=== PATIENT | male | born 1930 | race Caucasian/White ===

== ENCOUNTER 2021-12-03 23:41 | Inpatient (IN) ==
[2021-12-04] MEDS ORDERED: HYDROmorphone 1 MG/ML SYRINGE IV ONE (00:12)
[2021-12-04] MEDS ORDERED: ONDANSETRON 4 MG/2 ML VIAL IV PRN ×2 (01:07→08:58)
[2021-12-04] MEDS ORDERED: NALOXONE HCL 0.4 MG/ML VIAL IV PRN ×2 (01:07→18:03)
[2021-12-04] MEDS ORDERED: LACTATED RINGERS 1,000 ML IV ONE (01:23)
[2021-12-04 01:25] LABS: Basophils # (Auto) 0.02 K/mcL (0.00-0.30); Basophils % (Auto) 0.2 % (0.0-2.0); Eosinophils # (Auto) 0.02 K/mcL (0.00-0.70); Eosinophils % (Auto) 0.2 % (0.0-7.0); Hematocrit 28.3 % (40.1-51.0); Lymphocytes # (Auto) 0.55 K/mcL (1.50-4.80); Lymphocytes % (Auto) 4.4 % (15.5-49.0); Mean Cell Volume 99.3 fL (80.0-100.0); Mean Corpuscular HGB Conc 31.8 g/dL (31.0-36.0); Mean Platelet Volume 9.7 fL (8.8-12.5); Neutrophils % (Auto) 90.7 % (38.0-78.0); Platelet Count 158 K/mcL (140-440); RBC 2.85 M/mcL (4.63-6.08); Red Cell Distribution Width 13.9 % (11.5-14.5); WBC 12.5 K/mcL (4.5-11.0)
[2021-12-04] MEDS: LACTATED RINGERS 1,000 ML IV SCH ×2 (01:25→13:32)
[2021-12-04] MEDS ORDERED: LIDOCAINE VISCOUS 2% 15 ML UNIT DOSE CUP PO ONE (01:25)
[2021-12-04 01:41] LABS: Blood Urea Nitrogen 20 mg/dL (8-23); Calcium 9.1 mg/dL (8.6-10.4); Carbon Dioxide 24 mmol/L (22-30); Chloride 101 mmol/L (96-108); Glomerular Filtration Rate 75; Glucose 152 mg/dL (70-105)
--- NOTE | 2021-12-04 01:46 | Emergency Department Note ---
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 Morel presents the ED after a mechanical trip and fall once he was discharged home with acute left knee pain. He says his surgery earlier went perfectly fine he was eventually discharged home however his leg was still quite numb from his nerve block and when he was at home and attempted to stand up out of the chair he could not feel his footing and he stumbled and fell forward onto his left knee. He has obvious pain and swelling but denies distal numbness tingling although he has a bit of neuropathy at baseline. Really no other significant comorbidities he states. No head injury no blood thinners. No other injuries or trauma. Simply isolated left knee injury/pain with swelling and bruising. He does have a history of arthroplasty in that left knee that was done a very long time ago he says. Related Data Home Medications Medication Instructions Recorded Confirmed Sanguenol Nitric Oxide 1 cap PO BID SUPPLEMENT 11/14/21 12/03/21 acetaminophen 650 mg 650 mg PO Q12H PRN Pain 11/14/21 12/03/21 tablet,extended release ascorbic acid (vitamin C) 1,000 mg 1 g PO DAILY 11/14/21 12/03/21 tablet jgvqcvn-zzsrhzroa-znae tablet 1 tab PO DAILY 11/14/21 12/03/21 cetirizine 10 mg tablet (Aller-Dee) 10 mg PO QDAY 11/14/21 12/03/21 cholecalciferol (vitamin D3) 50 50 mcg PO QDAY 11/14/21 12/03/21 mcg (2,000 unit) capsule (Vitamin D3) coQ10 (ubiquinol) 1 cap PO DAILY 11/14/21 12/03/21 ferrous sulfate 325 mg (65 mg 325 mg PO QDAY 11/14/21 12/03/21 iron) tablet finasteride 5 mg tablet 5 mg PO QDAY 11/14/21 12/03/21 gabapentin 300 mg tablet 300 mg PO TID 11/14/21 12/03/21 guaifenesin 1,200 mg tablet, 1,200 mg PO DAILY 11/14/21 12/03/21 extended release 12 hr (Mucinex) ibuprofen 200 mg capsule (Advil 200 mg PO Q6H PRN Pain 11/14/21 12/03/21 Liqui-Gel) omega-3 fatty acids-vitamin E 1 cap PO DAILY 11/14/21 12/03/21 1,000 mg capsule tamsulosin 0.4 mg capsule 0.4 mg PO QDAY 11/14/21 12/03/21 vitamins-lipotropics tablet 1 tab PO BID 11/14/21 12/03/21 zinc 50 mg tablet 50 mg PO DAILY 11/14/21 12/03/21 amoxicillin 875 mg-potassium 1 tab PO BID 11/28/21 12/03/21 clavulanate 125 mg tablet Allergies Allergy/AdvReac Type Severity Reaction Status Date / Time tetracycline Allergy Rash Verified 12/03/21 23:48 Review of Systems ROS ROS Narrative: Narrative: All systems ED: reviewed and negative except as stated. [facility] Narrative Patient History Narrative: Narrative: Medical/Surgical/Family History All Active Problems (Updated 12/04/21 @ 01:46 by Oracio Trinidad DO) Closed fracture of distal end of left femur (Acute) Social History Smoking Status: Never smoker Exam Narrative Narrative: Narrative: Constitutional: normally developed, in pain Head: Normocephalic, atraumatic, Eyes: No Icterus, ENT: Moist mucus membranes, Neck: Supple, no midline tenderness Cardiac: Normal heart sounds, palpable dorsalis pedis pulses, 1+ lower extremity edema Pulmonary: Normal respiratory effort. Breath sounds clear, no wheeze, rhonchi, rales, Gastrointestinal: Abdomen soft, non-distended, non-tender, Musculoskeletal: Right lower extremity, upper extremities unremarkable atraumatic. Left lower extremity surgical postop dressing in place over his left thigh and left ankle. Taken down left thigh just has a small spot where his skin graft was taken. His left knee is obviously swollen and slightly deformed tender throughout. It is bruised. No tenderness up at his hip or proximal femur or lower leg. Left ankle and is postop dressing but distally has brisk cap refill sensation intact and palpable pulse. Able to wiggle toes. Skin: warm, dry Neuro: Alert and oriented. General Limitations: no limitations Course Vital Signs Vital signs: Vital Signs Temperature 36.6 C 12/03/21 23:42 Pulse Rate 77 12/03/21 23:42 Respiratory Rate 16 12/03/21 23:42 Blood Pressure 151/78 12/03/21 23:42 Pulse Oximetry (%) 96 12/03/21 23:42 Oxygen Delivery Method 12/03/21 23:42 Temperature 36.6 C 12/03/21 23:42 Pulse Rate 67 12/04/21 01:38 Respiratory Rate 16 12/03/21 23:42 Blood Pressure 93/61 12/04/21 01:30 Pulse Oximetry (%) 90 12/04/21 01:38 Oxygen Delivery Method 12/03/21 23:42 MDM MDM Narrative Medical decision making narrative: Narrative: Patient tripped and fell while trying to stand up out of his chair and fell onto his left knee. He is neurovascularly intact but on x-ray per my preliminary interpretation is a comminuted distal left femur fracture. We did place him in a knee immobilizer and given ice pack and analgesic. Spoke with Dr. Suarez who is agreeable to consultation and managing his orthopedic injury, request hospitalist admission. Dr. Kinney agrees to admit the patient Electrolytes no marked abnormalities, CBC with mild leukocytosis likely reactive, Twelve-lead EKG ordered for preop purposes sinus rhythm 67 first-degree AV block QRS QTC within normal no STEMI criteria Chest x-ray obtained for preoperative purposes per my preliminary interpretation appears to show a lot of chronic fibrosis, COPD appears similar to prior Patient admitted at this time pain improved no new complaints Lab Data Result diagrams: 12/04/21 00:22 12/04/21 00:22 Labs: Lab Results 12/04/21 Range/Units 00:22 WBC 12.5 H (4.5-11.0) K/mcL RBC 2.85 L (4.63-6.08) M/mcL Hgb 9.0 L (13.7-17.5) g/dL Hct 28.3 L (40.1-51.0) % MCV 99.3 (80.0-100.0) fL MCH 31.6 (26.0-34.0) pg MCHC 31.8 (31.0-36.0) g/dL RDW 13.9 (11.5-14.5) % Plt Count 158 (140-440) K/mcL MPV 9.7 (8.8-12.5) fL Immature Gran % (Auto) 0.5 (0.0-0.5) % Neut % (Auto) 90.7 H (38.0-78.0) % Lymph % (Auto) 4.4 L (15.5-49.0) % [place] % (Auto) 4.0 (1.0-12.0) % Eos % (Auto) 0.2 (0.0-7.0) % Baso % (Auto) 0.2 (0.0-2.0) % Lymph # (Auto) 0.55 L (1.50-4.80) K/mcL [place] # (Auto) 0.50 (0.10-0.90) K/mcL Eos # (Auto) 0.02 (0.00-0.70) K/mcL Baso # (Auto) 0.02 (0.00-0.30) K/mcL Immature Gran # 0.06 H (0.00-0.05) K/mcl Absolute Neutrophils 11.38 H (1.80-8.00) K/mcL Discharge Plan Patient/Caregiver Discharge Instructions Pt seen by SPINDLE SETTER/PA only: No Clinical Impression: Closed fracture of distal end of left femur Patient Disposition: Xfer As Inpt ([facility]) Condition: Serious Follow up with: Kaylah Conn MD [Primary Care Provider] - Prescriptions: No Action tamsulosin 0.4 mg Capsule 0.4 mg PO QDAY ferrous sulfate 325 mg (65 mg iron) Tablet 325 mg PO QDAY finasteride 5 mg Tablet 5 mg PO QDAY gabapentin 300 mg Tablet 300 mg PO TID ascorbic acid (vitamin C) 1,000 mg Tablet 1 g PO DAILY cetirizine [Aller-Dee] 10 mg Tablet 10 mg PO QDAY hghmpoc-qpgvqtonx-cgfm Tablet 1 tab PO DAILY zinc 50 mg Tablet 50 mg PO DAILY Lipogen Tablet 1 tab PO BID Fish Oil 1,000 mg Capsule 1 cap PO DAILY Mucinex 1,200 mg Tablet Extended Release 12hr 1,200 mg PO DAILY cholecalciferol (vitamin D3) [Vitamin D3] 50 mcg (2,000 unit) Capsule 50 mcg PO QDAY coQ10 (ubiquinol) 1 cap PO DAILY ibuprofen [Advil Liqui-Gel] 200 mg Capsule 200 mg PO Q6H PRN (Reason: Pain) acetaminophen 650 mg Tablet Extended Release 650 mg PO Q12H PRN (Reason: Pain) Sanguenol Nitric Oxide 1 cap PO BID amoxicillin-pot clavulanate 875-125 mg Tablet 1 tab PO BID MDD 30 DAYS Rx Instructions: 30 DAYS
--- NOTE | 2021-12-04 03:27 | XRay Report ---
. CLINICAL INFORMATION: Preop COMPARISON: 11/14/2021 TECHNIQUE: Portable FINDINGS: Mild cardiomegaly is unchanged. The mediastinum and pulmonary vasculature are unremarkable. 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 No new pulmonary abnormalities to suggest acute infiltrate. Moderate chronic elevation left diaphragm seen-as before. IMPRESSION: Mild cardiomegaly COPD, diffuse interstitial fibrosis and left diaphragm elevation are all stable. No acute disease Interpreted and Authenticated by: Brant Benson 12/04/21
--- NOTE | 2021-12-04 03:30 | XRay Report ---
CLINICAL INFORMATION: Trauma COMPARISON: None FINDINGS: A mildly comminuted spiral fracture of the distal femoral diaphysis appreciated. The proximal fragment is displaced approximately 1 cm anteriorly and medially with respect to the distal fragment. Only slight angulation deformity. Fracture is just superior to a total knee prostheses which is anatomically aligned without loosening or infection. Left hip shows mild degeneration. Overlying soft tissue swelling noted. IMPRESSION: Mildly displaced, comminuted spiral fracture-distal femoral diaphysis Interpreted and Authenticated by: Brant Benson 12/04/21
[2021-12-04] MEDS ORDERED: METHOCARBAMOL 1,000 MG/10 ML VIAL IV PRN ×2 (06:35→18:03)
[2021-12-04] MEDS ORDERED: IPRATROPIUM/ALBUTEROL 3 ML AMPUL.NEB NEB PRN ×3 (07:42→18:03)
--- NOTE | 2021-12-04 08:12 | EKG ---
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
[2021-12-04] MEDS ORDERED: traZODone HCL 50 MG TABLET PO PRN (08:58)
[2021-12-04] MEDS ORDERED: ACETAMINOPHEN 325 MG TABLET PO PRN (08:58)
[2021-12-04] MEDS ORDERED: CALCIUM MAGNESIUM ZINC PO SCH (09:00)
[2021-12-04] MEDS ORDERED: [UNRECOGNIZED DRUG - OTHER] PO SCH (09:00)
[2021-12-04] MEDS ORDERED: VITAMINS LIPOTROPICS PO SCH (09:00)
--- NOTE | 2021-12-04 09:09 | Internal Med History&Physical ---
HPI History of Present Illness Patient information: Note initiated : 12/04/21 at 9:01 am Service Date, if different from initiated Date: [] Patient: Brant Ribeiro a 89 y/o M admitted on 12/04/21 for Left Knee pain. Chief Complaint: [fall with left distal thigh pain] Chief complaint: fall with left distal thigh pain History of present illness: Mr. Ribeiro is a 89 year old M status post bilateral shoulder and knee replacement, BPH, presenting with accidental fall with resultant left distal thigh/knee pain. Patient's had a skin graft by Dr. Morel for a post surgical wound of the left lower medial leg. He received a nerve block for the procedures. He was being discharged home the same day yesterday. When he was ambulating with stools/to walker in his house, it tipped over to the cushion and he lost balance and he could not feel his leg so he fell. He denies any passing out. He denies any chest pain palpitations or shortness of breath. His neighbor helped him to get up and called the EMS to send the patient to our ED for evaluations. Imaging showing left distal femur spiral fractures. Orthopedic surgeon Dr. Suarez notified, plan to take the patient to the OR this afternoon at 2 PM for surgical fixations. Patient was complaining about 10 out of 10 sharp pain yesterday right after the incident, but right now he is complaining of no pain whatsoever. Constitutional Constitutional: Absent chills, excessive sweating, fatigue, fever(s) or weakness EENT Eyes: Absent blurry vision, change in vision, loss of vision or other visual disturbances Ears: Absent decreased hearing or tinnitus Nose, mouth and throat: Absent abnormal hearing, dry mouth, headache(s), nasal congestion or sore throat Cardiovascular Cardiovascular: Absent chest pain, chest pain at rest, edema, irregular heart rhythm or palpatations Respiratory Respiratory: Absent cough, dyspnea or wheezing Gastrointestinal Gastrointestinal: Absent abdominal pain, constipation, diarrhea, nausea or vomiting Musculoskeletal Musculoskeletal: Absent back pain, deformity, limited range of motion, muscle cramps, muscle weakness or numbness Integumentary Integumentary: Absent lesions, rash or wounds Neurological Neurological: Absent focal weakness, headache(s) or numbness Psychiatric Psychiatric: Absent anxiety, depression or hallucinations PFSH PFSH All Active Problems (Updated 12/04/21 @ 09:06 by Kurtis Kinney MD) Postoperative wound breakdown (Acute) BPH (benign prostatic hyperplasia) (Acute) Closed fracture of distal end of left femur (Acute) Social History smoking status: Former smoker MEDS/ALLERGIES Home Medications and Allergies Home Medications Medication Instructions Recorded Confirmed Type Sanguenol Nitric Oxide 1 cap PO BID SUPPLEMENT 11/14/21 12/04/21 History acetaminophen 650 mg 650 mg PO Q12H PRN Pain 11/14/21 12/04/21 History tablet,extended release ascorbic acid (vitamin C) 1,000 mg 1 g PO DAILY 11/14/21 12/04/21 History tablet xngnfrp-szhboqwlx-brxj tablet 1 tab PO DAILY 11/14/21 12/04/21 History cetirizine 10 mg tablet (Aller-Dee) 10 mg PO QDAY 11/14/21 12/04/21 History cholecalciferol (vitamin D3) 50 50 mcg PO QDAY 11/14/21 12/04/21 History mcg (2,000 unit) capsule (Vitamin D3) coQ10 (ubiquinol) 1 cap PO DAILY 11/14/21 12/04/21 History ferrous sulfate 325 mg (65 mg 325 mg PO QDAY 11/14/21 12/04/21 History iron) tablet finasteride 5 mg tablet 5 mg PO QDAY 11/14/21 12/04/21 History gabapentin 300 mg tablet 300 mg PO TID 11/14/21 12/04/21 History guaifenesin 1,200 mg tablet, 1,200 mg PO DAILY 11/14/21 12/04/21 History extended release 12 hr (Mucinex) ibuprofen 200 mg capsule (Advil 200 mg PO Q6H PRN Pain 11/14/21 12/04/21 History Liqui-Gel) omega-3 fatty acids-vitamin E 1 cap PO DAILY 11/14/21 12/04/21 History 1,000 mg capsule tamsulosin 0.4 mg capsule 0.4 mg PO QDAY 11/14/21 12/04/21 History vitamins-lipotropics tablet 1 tab PO BID 11/14/21 12/04/21 History zinc 50 mg tablet 50 mg PO DAILY 11/14/21 12/04/21 History amoxicillin 875 mg-potassium 1 tab PO BID 11/28/21 12/04/21 History clavulanate 125 mg tablet Allergies Allergy/AdvReac Type Severity Reaction Status Date / Time tetracycline Allergy Rash Verified 12/03/21 23:48 EXAM Constitutional Vitals: Temp Pulse Resp BP Pulse Ox O2 Del Method O2 Flow Rate 36.1 C 65 16 117/67 97 2 12/04/21 08:00 12/04/21 08:00 12/04/21 08:00 12/04/21 08:00 12/04/21 08:00 12/04/21 08:00 12/04/21 08:00 General appearance: cooperative and no acute distress Head Head exam: Present atraumatic and normocephalic Eye Eye exam: Present EOMI and PERRL ENT ENT exam: Present mucous membranes moist, normal exam and normal external ear exam Neck Neck exam: Present normal inspection; Absent lymphadenopathy, tenderness or thyromegaly Respiratory Respiratory exam: Absent accessory muscle use, respiratory distress or wheezes Cardiovascular Cardiovascular exam: Present normal rate and rhythm; Absent JVD GI/Abdominal GI/Abdominal exam: Present normal bowel sounds and soft; Absent organomegaly or tenderness Rectal Rectal exam: Present deferred Extremities Exam Extremities exam: Present normal capillary refill and tenderness; Absent full ROM or normal inspection Additional comments: Right lower extremity, upper extremities unremarkable atraumatic. Left lower extremity surgical postop dressing in place over his left thigh and left ankle. Taken down left thigh just has a small spot where his skin graft was taken. His left knee is obviously swollen and slightly deformed tender throughout. It is bruised. No tenderness up at his hip or proximal femur or lower leg. Left ankle and is postop dressing but distally has brisk cap refill sensation intact and palpable pulse. Able to wiggle toes. Neurological Exam Neurological exam: Present alert, CN II-XII intact and oriented X3; Absent motor sensory deficit Psychiatric Psychiatric exam: Present normal affect and normal mood; Absent anxious or depressed Skin Skin exam: Present dry and intact DATA Data Completed and Pending Labs: Labs from last 24 hours 12/04/21 12/04/21 00:22 00:22 WBC 12.5 H RBC 2.85 L Hgb 9.0 L Hct 28.3 L MCV 99.3 MCH 31.6 MCHC 31.8 RDW 13.9 Plt Count 158 MPV 9.7 Immature Gran % (Auto) 0.5 Neut % (Auto) 90.7 H Lymph % (Auto) 4.4 L [place] % (Auto) 4.0 Eos % (Auto) 0.2 Baso % (Auto) 0.2 Lymph # (Auto) 0.55 L [place] # (Auto) 0.50 Eos # (Auto) 0.02 Baso # (Auto) 0.02 Immature Gran # 0.06 H Absolute Neutrophils 11.38 H Sodium 136 Potassium 4.5 Chloride 101 Carbon Dioxide 24 Anion Gap 11.0 BUN 20 Creatinine 0.9 GFR Calculation 75 Glucose 152 H Calcium 9.1 A/P Assessment and plan (1) Closed fracture of distal end of left femur: Status: Acute (2) BPH (benign prostatic hyperplasia): Status: Acute (3) Postoperative wound breakdown: Status: Acute Narrative A/P Narrative: Assessment and Plans: 1. Left distal femur fracture, closed, spiral: Inpatient med surg Orthopedic surgeon Dr. Suarez notified, plan to take the patient to the OR this afternoon at 2 PM for surgical fixations Bedrest NPO with IV fluid Tylenol Oxycodone Dilaudid Physical therapy Occupational therapy 2. Left lower medial leg post-surgical breakdown, s/p skin graft: Dr. Morel continue to follow up Augmentin 3. BPH: Continue Finasteride and Flomax GI ppx: not currently indicated DVT ppx: SCDs Code status: Full Prognosis: guarded Disposition: inpatient med surg; PT OT Time Spent With Patient Time: Total time spent is greater than 50% in coordination of care (as documented) at patient's floor/unit and/or counseling patient: Total time spent with greater than 50% in coordination of care (as documented) at patient's floor/unit and/or counseling patient:: 50 - 70 minutes QUALITY Stroke Symptom Onset Unknown: No VTE Deep Vein Thrombosis/Pulmonary Embolism Present on Admission: No
[2021-12-04] MEDS ORDERED: IBUPROFEN 200 MG TABLET PO PRN (09:27)
[2021-12-04] MEDS: AMOXICILLIN/POTASSIUM CLAV 875 MG TABLET PO SCH ×2 (13:24→21:42)
[2021-12-04] MEDS: DOCUSATE SODIUM 100 MG CAPSULE PO SCH ×2 (13:24→21:42)
[2021-12-04] MEDS: FERROUS SULFATE 325 MG TABLET PO SCH (13:24)
[2021-12-04] MEDS: FINASTERIDE 5 MG TABLET PO SCH (13:33)
[2021-12-04] MEDS: TAMSULOSIN 0.4 MG CAPSULE PO SCH (13:33)
[2021-12-04] MEDS: CETIRIZINE 10 MG TABLET PO SCH (13:33)
[2021-12-04] MEDS: HYDROmorphone 0.5 MG/0.5 ML SYRINGE IV PRN (13:42)
--- NOTE | 2021-12-04 13:58 | General Surgery Consult Note ---
HPI Data of Consult Consult date: 12/04/21 Requesting physician: Kurtis Kinney Primary Care Provider: Kaylah Conn Consult Narrative Patient Information: Note initiated : 12/04/21 at 1:48 pm Service Date, if different from initiated Date: [] Patient: Brant Ribeiro 89 y/o M admitted on 12/04/21 for Left Knee pain. Chief Complaint: [] Chief complaint: H/O post op fall. Fracture LEFT distal femur 12/03/2021. Reason for consult: Continue ongoing wound care f/u. cc:: 89/M Patient underwent Debridement and skin graft of LEFT medial leg VLU wound. Uneventful surgery and post op recovery. Patient fell at home while trying to get OOB and stand. Seen at [facility] ER . Admitted for fracture femur.LEFT. Scheduled to undergo ORIF by JOSEA Mondragon today 12/04/2021 CC: Kurtis Kinney MD [facility] All Active Problems (Updated 12/04/21 @ 09:06 by Kurtis Kinney MD) Postoperative wound breakdown (Acute) BPH (benign prostatic hyperplasia) (Acute) Closed fracture of distal end of left femur (Acute) Social History smoking status: Former smoker MEDS/ALLERGIES Home Medications and Allergies Home Medications Medication Instructions Recorded Confirmed Type Sanguenol Nitric Oxide 1 cap PO BID SUPPLEMENT 11/14/21 12/04/21 History acetaminophen 650 mg 650 mg PO Q12H PRN Pain 11/14/21 12/04/21 History tablet,extended release ascorbic acid (vitamin C) 1,000 mg 1 g PO DAILY 11/14/21 12/04/21 History tablet navhdfr-iqmemrorh-fvnu tablet 1 tab PO DAILY 11/14/21 12/04/21 History cetirizine 10 mg tablet (Aller-Dee) 10 mg PO QDAY 11/14/21 12/04/21 History cholecalciferol (vitamin D3) 50 50 mcg PO QDAY 11/14/21 12/04/21 History mcg (2,000 unit) capsule (Vitamin D3) coQ10 (ubiquinol) 1 cap PO DAILY 11/14/21 12/04/21 History ferrous sulfate 325 mg (65 mg 325 mg PO QDAY 11/14/21 12/04/21 History iron) tablet finasteride 5 mg tablet 5 mg PO QDAY 11/14/21 12/04/21 History gabapentin 300 mg tablet 300 mg PO TID 11/14/21 12/04/21 History guaifenesin 1,200 mg tablet, 1,200 mg PO DAILY 11/14/21 12/04/21 History extended release 12 hr (Mucinex) ibuprofen 200 mg capsule (Advil 200 mg PO Q6H PRN Pain 11/14/21 12/04/21 History Liqui-Gel) omega-3 fatty acids-vitamin E 1 cap PO DAILY 11/14/21 12/04/21 History 1,000 mg capsule tamsulosin 0.4 mg capsule 0.4 mg PO QDAY 11/14/21 12/04/21 History vitamins-lipotropics tablet 1 tab PO BID 11/14/21 12/04/21 History zinc 50 mg tablet 50 mg PO DAILY 11/14/21 12/04/21 History amoxicillin 875 mg-potassium 1 tab PO BID 11/28/21 12/04/21 History clavulanate 125 mg tablet Allergies Allergy/AdvReac Type Severity Reaction Status Date / Time tetracycline Allergy Rash Verified 12/03/21 23:48 Physical Examination Vital Signs Vital signs: Temp Pulse Resp BP Pulse Ox O2 Del Method O2 Flow Rate 97.3 F 71 16 120/73 97 2 12/04/21 12:00 12/04/21 12:00 12/04/21 08:00 12/04/21 12:00 12/04/21 12:00 12/04/21 12:00 12/04/21 12:00 General physical appearance General physical exam: well developed, well nourished, no distress and no pain Eyes Eye exam: PERRL and normal ocular movement ENT ENT exam: normal pinna, normal nares and no congestion Head Head exam IM: Present atraumatic and normocephalic Neck Neck exam: no masses, no lymphadenopathy and no venous distension Cardiovascular Cardiovascular exam IM: Present normal rate and rhythm Respiratory Respiratory exam: normal respiratory effort and clear to auscultation Abdomen Abdomen: Present soft, non tender and bowel sounds Integumentary Integumentary: Present other (Post op dressings LEFT leg and thigh intact. ) Neurologic Neurologic: Present other (No focal neurological deficits. LEFT foot warm and dry. Moves all toes.) Musculoskeletal Musculoskeletal: Present other (Non ambulatory. LEFT LLE in splinted knee brace) Results Labs Result diagrams: 12/04/21 00:22 12/04/21 00:22 Labs: Abnormal lab results 12/04/21 12/04/21 Range/Units 00:22 00:22 WBC 12.5 H (4.5-11.0) K/mcL RBC 2.85 L (4.63-6.08) M/mcL Hgb 9.0 L (13.7-17.5) g/dL Hct 28.3 L (40.1-51.0) % Neut % (Auto) 90.7 H (38.0-78.0) % Lymph % (Auto) 4.4 L (15.5-49.0) % Lymph # (Auto) 0.55 L (1.50-4.80) K/mcL Immature Gran # 0.06 H (0.00-0.05) K/mcl Absolute Neutrophils 11.38 H (1.80-8.00) K/mcL Glucose 152 H (70-105) mg/dL Diabetes panel 12/04/21 Range/Units 00:22 Sodium 136 (133-145) mmol/L Potassium 4.5 (3.3-5.1) mmol/L Chloride 101 (96-108) mmol/L Carbon Dioxide 24 (22-30) mmol/L BUN 20 (8-23) mg/dL Creatinine 0.9 (0.7-1.2) mg/dL Glucose 152 H (70-105) mg/dL Calcium 9.1 (8.6-10.4) mg/dL Calcium panel 12/04/21 Range/Units 00:22 Calcium 9.1 (8.6-10.4) mg/dL Pituitary panel 12/04/21 Range/Units 00:22 Sodium 136 (133-145) mmol/L Potassium 4.5 (3.3-5.1) mmol/L Chloride 101 (96-108) mmol/L Carbon Dioxide 24 (22-30) mmol/L BUN 20 (8-23) mg/dL Creatinine 0.9 (0.7-1.2) mg/dL Glucose 152 H (70-105) mg/dL Calcium 9.1 (8.6-10.4) mg/dL Adrenal panel 12/04/21 Range/Units 00:22 Sodium 136 (133-145) mmol/L Potassium 4.5 (3.3-5.1) mmol/L Chloride 101 (96-108) mmol/L Carbon Dioxide 24 (22-30) mmol/L BUN 20 (8-23) mg/dL Creatinine 0.9 (0.7-1.2) mg/dL Glucose 152 H (70-105) mg/dL Calcium 9.1 (8.6-10.4) mg/dL All other labs normal. A/P Narrative Plan of Treatment: Assessment: Fall at home LEFT femur closed fracture. Awaits ORIF by Dr. Suarez h/o Mega debridement of LEFT lower leg VLU Split thickness skin graft on 12/03/2021 AM Plan: Will await ORIF Will continue to follow patient during his hospitalization. Further recommendations as the condition evolves. Spoke with patient and Nahum Torres CRNA about this patient. Time Spent With Patient Time: Total time spent is greater than 50% in coordination of care (as documented) at patient's floor/unit and/or counseling patient: Total time spent with greater than 50% in coordination of care (as documented) at patient's floor/unit and/or counseling patient:: 15 - 24 minutes
[2021-12-04] MEDS: 0.9 % SODIUM CHLORIDE 10 ML SYRINGE IV SCH ×3 (14:15→20:15)
[2021-12-04] MEDS: GABAPENTIN 300 MG CAPSULE PO SCH ×2 (16:16→21:42)
[2021-12-04] MEDS ORDERED: ceFAZolin 2 GM in DEXTROSE 5% IN WATER 50 ML IV SCH (16:50)
[2021-12-04] MEDS ORDERED: KETAMINE 50 MG/ML Syringe (ANEST) IV ONE (16:55)
[2021-12-04] MEDS ORDERED: DEXAMETHASONE 10 MG/ML VIAL ONE (16:55)
[2021-12-04] MEDS ORDERED: ONDANSETRON 4 MG/2 ML VIAL ONE (16:55)
[2021-12-04] MEDS ORDERED: LIDOCAINE HCL/PF 100 MG/5 ML SYRINGE IV ONE (16:55)
[2021-12-04] MEDS ORDERED: fentaNYL 100 MCG/2 ML VIAL IV ONE (16:55)
[2021-12-04] MEDS ORDERED: PHENYLephrine 1 MG/10 ML SYRINGE (ANEST) ONE (16:55)
[2021-12-04] MEDS ORDERED: GLYCOPYRROLATE 0.2 MG/ML VIAL IV ONE (16:55)
[2021-12-04] MEDS ORDERED: PROPOFOL 200 MG/20 ML VIAL IV ONE (16:55)
[2021-12-04] MEDS ORDERED: MAGNESIUM SULFATE 2 GM/50 ML BAG IV ONE (16:55)
[2021-12-04] MEDS ORDERED: ePHEDrine 50 MG/5 ML SYRINGE (ANEST) IV ONE (16:55)
[2021-12-04] MEDS ORDERED: LACTATED RINGERS 250 ML IV PRN (18:03)
[2021-12-04] MEDS ORDERED: ACETAMINOPHEN 1,000 MG/100 ML BAG IV ONE ×2 (18:03→18:47)
[2021-12-04] MEDS ORDERED: fentaNYL 100 MCG/2 ML VIAL IV PRN (18:03)
[2021-12-04] MEDS ORDERED: LACTATED RINGERS 1,000 ML IV SCH (18:15)
--- NOTE | 2021-12-04 18:19 | Brief Operative Note ---
Brief Operative Note Date of procedure: 12/04/21 Pre-op diagnosis: left periprosthetic femur Post-op diagnosis: same Procedure: ORIF Grafts/Implants: Yes Anesthesia: GETA Findings: stable fixation Complications: none Surgeon: Robson Suarez Stage Builder: Colleen Escalante Estimated blood loss (cc): 100 Specimens Removed/Pathology: none sent Condition: stable
[2021-12-04] MEDS ORDERED: VANCOMYCIN 1,000 MG in 0.9 % SODIUM CHLORIDE 250 ML IV ONE (18:26)
[2021-12-04] MEDS: SENNOSIDES 1 TABLET PO SCH (21:42)
[2021-12-05] MEDS: ceFAZolin 1 GM VIAL IV SCH (00:19)
[2021-12-05] MEDS: LACTATED RINGERS 1,000 ML IV SCH ×2 (00:20→16:49)
[2021-12-05] MEDS: oxyCODONE HCL 5 MG TABLET PO PRN (02:14)
[2021-12-05] MEDS: 0.9 % SODIUM CHLORIDE 10 ML SYRINGE IV SCH ×6 (05:25→20:29)
--- NOTE | 2021-12-05 06:55 | XRay Report ---
INDICATION: ORIF Left Distal Femur TECHNIQUE: Intraoperative fluoroscopy and spot films. 0.9 minutes fluoroscopy and 6.14 mGy exposure utilized by Dr. Suarez. IMPRESSION: Intraoperative fluoroscopy and spot films Interpreted and Authenticated by: Brant Canas 12/05/21
[2021-12-05 07:43] LABS: Basophils # (Auto) 0.01 K/mcL (0.00-0.30); Basophils % (Auto) 0.1 % (0.0-2.0); Eosinophils # (Auto) 0.02 K/mcL (0.00-0.70); Eosinophils % (Auto) 0.2 % (0.0-7.0); Hematocrit 21.4 % (40.1-51.0); Hemoglobin 6.7 g/dL (13.7-17.5); Lymphocytes # (Auto) 0.72 K/mcL (1.50-4.80); Lymphocytes % (Auto) 7.3 % (15.5-49.0); Mean Cell Volume 101.4 fL (80.0-100.0); Mean Corpuscular HGB Conc 31.3 g/dL (31.0-36.0); Monocytes # (Auto) 0.54 K/mcL (0.10-0.90); Monocytes % (Auto) 5.4 % (1.0-12.0); Neutrophils % (Auto) 86.5 % (38.0-78.0); Platelet Count 121 K/mcL (140-440); RBC 2.11 M/mcL (4.63-6.08); Red Cell Distribution Width 14.2 % (11.5-14.5); WBC 9.9 K/mcL (4.5-11.0)
--- NOTE | 2021-12-05 07:50 | Operative Note ---
DATE OF OPERATION: 12/04/2021 PREOPERATIVE DIAGNOSIS: Comminuted left periprosthetic supracondylar femur fracture. POSTOPERATIVE DIAGNOSIS: Comminuted left periprosthetic supracondylar femur fracture. OPERATION PROPOSED: Open reduction internal fixation of comminuted left periprosthetic femur fracture. OPERATION PERFORMED: Same. SURGEON: Robson Suarez M.D. TRANSFER CAR OPERATOR: Colleen Escalante PA-C. This provider's expertise and technical skill were required throughout the case. The PA assisted with preoperative coordination, intraoperative retraction, wound closure, and dressing and splint application, as well as postoperative documentation and care coordination. DESCRIPTION OF PROCEDURE: Informed consent was obtained. He was taken to the operating room and provided with appropriate anesthetic and prophylactic antibiotics. He was carefully positioned. His leg was prepped sterilely. He had a previous skin graft. We left this dressing in place distally on his foot, draped around it. We made a lateral approach, advanced a 10-hole plate from [place]. The best possible reduction was obtained and a screw was placed proximally and distally. We did place a Abad clamp across the fracture and then filled holes through the targeter proximally and filled the distal holes in the plate, stabilizing the plate, stabilizing the fracture. The wounds were irrigated thoroughly. They were closed using a #1 Vicryl and a running Stratafix, 2-0 inverted deep dermal and maxwell. The procedure was tolerated well. No complications. ESTIMATED BLOOD LOSS: 100 mL. GDD:harjit Job ID: [id number] Doc ID: [id number] Robson Suarez MD
[2021-12-05] MEDS ORDERED: 0.9 % SODIUM CHLORIDE 250 ML IV SCH (08:00)
[2021-12-05] MEDS ORDERED: diphenhydrAMINE 25 MG CAPSULE PO SCH (08:05)
[2021-12-05] MEDS ORDERED: ACETAMINOPHEN 325 MG TABLET PO SCH (08:05)
[2021-12-05] MEDS: AMOXICILLIN/POTASSIUM CLAV 875 MG TABLET PO SCH ×2 (08:22→20:26)
[2021-12-05] MEDS: TAMSULOSIN 0.4 MG CAPSULE PO SCH (08:22)
[2021-12-05] MEDS: GABAPENTIN 300 MG CAPSULE PO SCH ×3 (08:22→20:26)
[2021-12-05] MEDS: DOCUSATE SODIUM 100 MG CAPSULE PO SCH ×2 (08:22→20:26)
[2021-12-05] MEDS: FERROUS SULFATE 325 MG TABLET PO SCH (08:23)
[2021-12-05] MEDS: ZINC SULFATE 50 MG CAPSULE PO SCH (08:23)
[2021-12-05] MEDS: CETIRIZINE 10 MG TABLET PO SCH (08:23)
[2021-12-05] MEDS: ASCORBIC ACID 500 MG TABLET PO SCH (08:24)
[2021-12-05] MEDS: FINASTERIDE 5 MG TABLET PO SCH (08:24)
[2021-12-05 08:27] LABS: Blood Urea Nitrogen 16 mg/dL (8-23); Calcium 8.4 mg/dL (8.6-10.4); Carbon Dioxide 28 mmol/L (22-30); Chloride 102 mmol/L (96-108); Glomerular Filtration Rate 79; Glucose 151 mg/dL (70-105)
[2021-12-05] MEDS ORDERED: COQ10 PO SCH (09:00)
[2021-12-05] MEDS ORDERED: VITAMIN D3 25 MCG TABLET PO SCH (09:00)
[2021-12-05] MEDS ORDERED: FISH OIL 1,000 MG CAPSULE PO SCH (09:00)
[2021-12-05] MEDS ORDERED: guaiFENesin 600 MG TAB.SR.12H PO SCH (09:00)
[2021-12-05] MEDS: HYDROmorphone 0.5 MG/0.5 ML SYRINGE IV PRN (11:33)
--- NOTE | 2021-12-05 11:33 | Internal Med Progress Note ---
SUBJECTIVE Subjective Patient information: Note initiated : 12/05/21 at 11:28 am Service Date, if different from initiated Date: [] Patient: Brant Ribeiro a 89 y/o M admitted on 12/04/21 for Left Knee pain. Chief Complaint: [] Interval history: Mr. Ribeiro is a 89 year old M status post bilateral shoulder and knee replacement, BPH, presenting with accidental fall with resultant left distal thigh/knee pain. Patient's had a skin graft by Dr. Morel for a post surgical wound of the left lower medial leg. He received a nerve block for the procedures. He was being discharged home the same day yesterday. When he was ambulating with stools/to walker in his house, it tipped over to the cushion and he lost balance and he could not feel his leg so he fell. He denies any passing out. He denies any chest pain palpitations or shortness of breath. His neighbor helped him to get up and called the EMS to send the patient to our ED for evaluations. Imaging showing left distal femur spiral fractures. Orthopedic surgeon Dr. Suarez notified, plan to take the patient to the OR this afternoon at 2 PM for surgical fixations. Patient was complaining about 10 out of 10 sharp pain yesterday right after the incident, but right now he is complaining of no pain whatsoever. 12/05: s/p ORIF left femoral fracture by orthopedic surgeon Dr. Suarez on 12/04. Tolerated the procedure well. He is currently complaining of pinching sensation of his left knee at the moment, mild. H&H 6.7 and 21.4 this morning. He denies any shortness of breath or palpitations or chest pain. Will transfuse 2 unit PRBC right now and will recheck H&H this evening after finishing the blood transfusions. Postpone physical therapy and Occupational Therapy. Continue pain management as needed for left thigh/knee postsurgical pain. Constitutional Vitals: Vital Signs Temp Pulse Resp BP Pulse Ox O2 Del Method O2 Flow Rate 36.3 C 83 16 114/59 94 2 12/05/21 11:03 12/05/21 11:03 12/05/21 11:03 12/05/21 11:03 12/05/21 11:03 12/05/21 11:03 12/05/21 07:57 Period Temp Pulse Resp BP Sys/Rodriguez Pulse Ox O2 Del Method O2 Flow Rate Last 24 Hr 36.3 C-37.1 C 64-89 8-20 74-127/54-73 85-100 Nasal Cannula-Simple Mask 2-6 Intake and Output 12/04/21 12/05/21 12/05/21 21:59 05:59 13:59 Intake Total 3300 1557 Output Total 300 1750 Balance 3000 -193 Weight 93.61 kg Intake & Output: Intake & Output 12/04/21 12/05/21 12/05/21 21:59 05:59 13:59 Intake Total 3300 1557 Output Total 300 1750 Balance 3000 -193 Weight 93.61 kg Intake: IV 1400 907 Lactated Ringers 1,000 ml @ 84 1000 907 mls/hr IV .[id number] [facility] Rx#: [id number] Vancomycin 1,000 mg In Sodium 250 Chloride 0.9% 250 ml @ 250 mls/ hr IV ONCE ONE Rx#:[id number] Ancef 2 gm In Dextrose 5% in 50 Water 50 ml @ 100 mls/hr IV PREOP [facility] Rx#:[id number] Oral 650 IV - Manual Only 1900 Output: Urine Catheter Amount 300 1750 Other: Urine Appearance Clear Clear Urine Color Yellow Yellow Urine Odor Normal Head Head exam: Present atraumatic and normal inspection Eye Eye exam: Present normal appearance ENT ENT exam: Present mucous membranes moist, normal exam and normal external ear exam Neck Neck exam: Present normal inspection Respiratory Respiratory exam: Present normal respiratory exam Cardiovascular Cardiovascular exam: Present normal rate and rhythm GI/Abdominal GI/Abdominal exam: Present normal bowel sounds Additional comments: Babcock catheter in place Extremities Exam Extremities exam: Present tenderness; Absent full ROM or normal inspection Additional comments: Left lower extremity in surgical dressing and cast Back Exam Back exam: Present normal inspection Neurological Exam Neurological exam: Present alert and oriented X3 Skin Skin exam: Present intact and warm OBJ DATA Labs CBC & Chem 7: 12/05/21 05:27 12/05/21 05:27 Labs: Abnormal Lab Results 12/05/21 12/05/21 12/04/21 05:27 05:27 00:22 WBC RBC 2.11 L Hgb 6.7 L* Hct 21.4 L MCV 101.4 H Plt Count 121 L Neut % (Auto) 86.5 H Lymph % (Auto) 7.3 L Lymph # (Auto) 0.72 L Immature Gran # Absolute Neutrophils 8.58 H Glucose 151 H 152 H Calcium 8.4 L 12/04/21 00:22 WBC 12.5 H RBC 2.85 L Hgb 9.0 L Hct 28.3 L MCV Plt Count Neut % (Auto) 90.7 H Lymph % (Auto) 4.4 L Lymph # (Auto) 0.55 L Immature Gran # 0.06 H Absolute Neutrophils 11.38 H Glucose Calcium Meds: Medications Acetaminophen (Acetaminophen 325 Mg Tablet) 650 mg PO Q6HP PRN; Protocol PRN Reason: Per Pain Protocol/Fever > 101 Albuterol/Ipratropium (Ipratropium/Albuterol 3 Ml Ampul.Neb) 3 ml NEB Q4HRT PRN PRN Reason: Wheezing Amoxicillin/Clavulanate Potassium (Amoxicillin/Potassium Clav 875 Mg Tablet) 875 mg PO BID [facility]; Protocol Last Admin: 12/05/21 08:22 Dose: 875 mg Ascorbic Acid (Ascorbic Acid 500 Mg Tablet) 1,000 mg PO DAILY [facility] Last Admin: 12/05/21 08:24 Dose: 1,000 mg Cetirizine HCl (Cetirizine 10 Mg Tablet) 10 mg PO QDAY [facility] Last Admin: 12/05/21 08:23 Dose: 10 mg Docusate Sodium (Docusate Sodium 100 Mg Capsule) 100 mg PO BID [facility] Last Admin: 12/05/21 08:22 Dose: 100 mg Ferrous Sulfate (Ferrous Sulfate 325 Mg Tablet) 325 mg PO QDAY [facility] Last Admin: 12/05/21 08:23 Dose: 325 mg Finasteride (Finasteride 5 Mg Tablet) 5 mg PO QDAY [facility] Last Admin: 12/05/21 08:24 Dose: 5 mg Fish Oil (Fish Oil 1,000 Mg Capsule) 1,000 mg PO DAILY [facility] Last Admin: 12/05/21 08:23 Dose: 1,000 mg Gabapentin (Gabapentin 300 Mg Capsule) 300 mg PO TID [facility] Last Admin: 12/05/21 08:22 Dose: 300 mg Guaifenesin (Guaifenesin 600 Mg Tab.Sr.12h) 1,200 mg PO DAILY [facility] Last Admin: 12/05/21 08:23 Dose: 1,200 mg Hydromorphone HCl (Hydromorphone 0.5 Mg/0.5 Ml Syringe) 0.5 mg IV Q2HP PRN; Protocol PRN Reason: Per Pain Protocol Last Admin: 12/04/21 13:42 Dose: 0.5 mg Lactated Ringer's (Lactated Ringers) 1,000 mls @ 84 mls/hr IV .[id number] [facility] Last Admin: 12/05/21 00:20 Dose: 84 mls/hr Sodium Chloride (Sodium Chloride 0.9%) 250 mls @ 20 mls/hr IV .[id number] [facility] Stop: 12/05/21 20:29 Ibuprofen (Ibuprofen 200 Mg Tablet) 200 mg PO Q6HP PRN PRN Reason: Pain Methocarbamol (Methocarbamol 1,000 Mg/10 Ml Vial) 750 mg IV Q6HP PRN PRN Reason: Muscle Spasm Methocarbamol (Methocarbamol 750 Mg Tablet) 750 mg PO Q6HP PRN PRN Reason: Muscle Spasm Naloxone HCl (Naloxone Hcl 0.4 Mg/Ml Vial) 0.1 mg IV Q2MIN PRN PRN Reason: Opiate Reversal Ondansetron HCl (Ondansetron 4 Mg/2 Ml Vial) 4 mg IV Q4HP PRN; Protocol PRN Reason: Nausea And Vomiting Ondansetron HCl (Ondansetron 4 Mg/2 Ml Vial) 4 mg IV Q6HP PRN PRN Reason: Nausea And Vomiting Oxycodone HCl (Oxycodone Hcl 5 Mg Tablet) 10 mg PO Q4-6HP PRN; Protocol PRN Reason: Per Pain Protocol Last Admin: 12/05/21 02:14 Dose: 10 mg Coq10 (Ubiquinol) (Cap) 1 dose PO DAILY [facility] Senna (Sennosides 1 Tablet) 2 tab PO HS [facility] Last Admin: 12/04/21 21:42 Dose: 2 tab Sodium Chloride (0.9 % Sodium Chloride 10 Ml Syringe) 10 ml IV Q8 [facility] Last Admin: 12/05/21 05:25 Dose: Not Given Sodium Chloride (0.9 % Sodium Chloride 10 Ml Syringe) 10 ml IV Q8 [facility] Last Admin: 12/05/21 05:25 Dose: Not Given Tamsulosin HCl (Tamsulosin 0.4 Mg Capsule) 0.4 mg PO QDAY [facility] Last Admin: 12/05/21 08:22 Dose: 0.4 mg Trazodone HCl (Trazodone Hcl 50 Mg Tablet) 25 mg PO HSP PRN PRN Reason: Insomnia Vitamin D (Vitamin D3 25 Mcg Tablet) 50 mcg PO DAILY [facility] Last Admin: 12/05/21 08:24 Dose: 50 mcg Zinc Sulfate (Zinc Sulfate 50 Mg Capsule) 50 mg PO DAILY [facility] Last Admin: 12/05/21 08:23 Dose: 50 mg A/P Assessment and plan (1) Closed fracture of distal end of left femur: Status: Acute (2) BPH (benign prostatic hyperplasia): Status: Acute (3) Postoperative wound breakdown: Status: Acute (4) Anemia, macrocytic: Status: Acute Narrative A/P Narrative: Assessment and Plans: 1. Left distal femur fracture, closed, spiral: Inpatient med surg s/p ORIF left femoral fracture by orthopedic surgeon Dr. Suarez on 12/04. Tolerated the procedure well. Tylenol Oxycodone Dilaudid Physical therapy Occupational therapy 2. Left lower medial leg post-surgical breakdown, s/p skin graft: Dr. Morel continue to follow up Augmentin 3. BPH: Continue Finasteride and Flomax 4. Anemia, macrocytic: Transfuse 2 unit pRBC now, repeat H/H this evening after finishing transfusion SCDs GI ppx: not currently indicated DVT ppx: SCDs Code status: Full Prognosis: guarded Disposition: inpatient med surg; PT OT Plan of Treatment: Assessment: Fall at home LEFT femur closed fracture. Awaits ORIF by Dr. Suarez h/o Versajet debridement of LEFT lower leg VLU Split thickness skin graft on 12/03/2021 AM Plan: Will await ORIF Will continue to follow patient during his hospitalization. Further recommendations as the condition evolves. Spoke with patient and Nahum Torres CRNA about this patient. Time Spent With Patient Time: Total time spent is greater than 50% in coordination of care (as documented) at patient's floor/unit and/or counseling patient: Total time spent with greater than 50% in coordination of care (as documented) at patient's floor/unit and/or counseling patient:: 25 - 35 minutes QUALITY Stroke Symptom Onset Unknown: No VTE Deep Vein Thrombosis/Pulmonary Embolism Present on Admission: No
--- NOTE | 2021-12-05 13:37 | Internal Med Progress Note ---
SUBJECTIVE Subjective Patient information: Note initiated : 12/05/21 at 1:33 pm Service Date, if different from initiated Date: [] Patient: Brant Ribeiro a 89 y/o M admitted on 12/04/21 for Left Knee pain. Chief Complaint: [] Interval history: Mr. Ribeiro is a 89 year old M status post bilateral shoulder and knee replacement, BPH, presenting with accidental fall with resultant left distal thigh/knee pain. Patient's had a skin graft by Dr. Morel for a post surgical wound of the left lower medial leg. He received a nerve block for the procedures. He was being discharged home the same day yesterday. When he was ambulating with stools/to walker in his house, it tipped over to the cushion and he lost balance and he could not feel his leg so he fell. He denies any passing out. He denies any chest pain palpitations or shortness of breath. His neighbor helped him to get up and called the EMS to send the patient to our ED for evaluations. Imaging showing left distal femur spiral fractures. Orthopedic surgeon Dr. Suarez notified, plan to take the patient to the OR this afternoon at 2 PM for surgical fixations. Patient was complaining about 10 out of 10 sharp pain yesterday right after the incident, but right now he is complaining of no pain whatsoever. 12/05: s/p ORIF left femoral fracture by orthopedic surgeon Dr. Suarez on 12/04. Tolerated the procedure well. He is currently complaining of pinching sensation of his left knee at the moment, mild. H&H 6.7 and 21.4 this morning. He denies any shortness of breath or palpitations or chest pain. Will transfuse 2 unit PRBC right now and will recheck H&H this evening after finishing the blood transfusions. Postpone physical therapy and Occupational Therapy. Continue pain management as needed for left thigh/knee postsurgical pain. 12/06 Constitutional Vitals: Vital Signs Temp Pulse Resp BP Pulse Ox O2 Del Method O2 Flow Rate 98.6 F 83 20 115/62 97 3 12/05/21 12:00 12/05/21 11:03 12/05/21 12:00 12/05/21 12:00 12/05/21 12:00 12/05/21 12:00 12/05/21 12:00 Period Temp Pulse Resp BP Sys/Rodriguez Pulse Ox O2 Del Method O2 Flow Rate Last 24 Hr 97.3 F-98.7 F 64-89 8-20 74-127/54-73 85-100 Nasal Cannula- Simple Mask 2-6 Intake and Output 12/04/21 12/05/21 12/05/21 21:59 05:59 13:59 Intake Total 3300 1557 Output Total 300 1750 350 Balance 3000 -193 -350 Weight 93.61 kg Intake & Output: Intake & Output 12/04/21 12/05/21 12/05/21 21:59 05:59 13:59 Intake Total 3300 1557 Output Total 300 1750 350 Balance 3000 -193 -350 Weight 93.61 kg Intake: IV 1400 907 Lactated Ringers 1,000 ml @ 84 1000 907 mls/hr IV .[id number] [facility] Rx#: [id number] Vancomycin 1,000 mg In Sodium 250 Chloride 0.9% 250 ml @ 250 mls/ hr IV ONCE ONE Rx#:[id number] Ancef 2 gm In Dextrose 5% in 50 Water 50 ml @ 100 mls/hr IV PREOP [facility] Rx#:[id number] Oral 650 IV - Manual Only 1900 Output: Urine Catheter Amount 300 1750 Void Amount 350 Other: Urine Appearance Clear Clear Urine Color Yellow Yellow Urine Odor Normal Exam: General: Alert, Awake, No acute Distress Eyes/N/T: EOMI, Head/Neck: neck supple, CV: RRR, No murmurs, Pulm: Clear b/l, no wheezing/rhonchi/rales Abd: soft, nontender, +BS x4 Ext: no clubbing/cyanosis/edema. LLE surgical dressing and cast Neuro: Alert, no focal deficits, moves all extremities, Skin: warm/dry OBJ DATA Labs CBC & Chem 7: 12/05/21 05:27 12/05/21 05:27 Labs: Abnormal Lab Results 12/05/21 12/05/21 12/04/21 05:27 05:27 00:22 WBC RBC 2.11 L Hgb 6.7 L* Hct 21.4 L MCV 101.4 H Plt Count 121 L Neut % (Auto) 86.5 H Lymph % (Auto) 7.3 L Lymph # (Auto) 0.72 L Immature Gran # Absolute Neutrophils 8.58 H Glucose 151 H 152 H Calcium 8.4 L 12/04/21 00:22 WBC 12.5 H RBC 2.85 L Hgb 9.0 L Hct 28.3 L MCV Plt Count Neut % (Auto) 90.7 H Lymph % (Auto) 4.4 L Lymph # (Auto) 0.55 L Immature Gran # 0.06 H Absolute Neutrophils 11.38 H Glucose Calcium Meds: Medications Acetaminophen (Acetaminophen 325 Mg Tablet) 650 mg PO Q6HP PRN; Protocol PRN Reason: Per Pain Protocol/Fever > 101 Albuterol/Ipratropium (Ipratropium/Albuterol 3 Ml Ampul.Neb) 3 ml NEB Q4HRT PRN PRN Reason: Wheezing Amoxicillin/Clavulanate Potassium (Amoxicillin/Potassium Clav 875 Mg Tablet) 875 mg PO BID [facility]; Protocol Last Admin: 12/05/21 08:22 Dose: 875 mg Ascorbic Acid (Ascorbic Acid 500 Mg Tablet) 1,000 mg PO DAILY [facility] Last Admin: 12/05/21 08:24 Dose: 1,000 mg Cetirizine HCl (Cetirizine 10 Mg Tablet) 10 mg PO QDAY [facility] Last Admin: 12/05/21 08:23 Dose: 10 mg Docusate Sodium (Docusate Sodium 100 Mg Capsule) 100 mg PO BID [facility] Last Admin: 12/05/21 08:22 Dose: 100 mg Ferrous Sulfate (Ferrous Sulfate 325 Mg Tablet) 325 mg PO QDAY [facility] Last Admin: 12/05/21 08:23 Dose: 325 mg Finasteride (Finasteride 5 Mg Tablet) 5 mg PO QDAY [facility] Last Admin: 12/05/21 08:24 Dose: 5 mg Fish Oil (Fish Oil 1,000 Mg Capsule) 1,000 mg PO DAILY [facility] Last Admin: 12/05/21 08:23 Dose: 1,000 mg Gabapentin (Gabapentin 300 Mg Capsule) 300 mg PO TID [facility] Last Admin: 12/05/21 08:22 Dose: 300 mg Guaifenesin (Guaifenesin 600 Mg Tab.Sr.12h) 1,200 mg PO DAILY [facility] Last Admin: 12/05/21 08:23 Dose: 1,200 mg Hydromorphone HCl (Hydromorphone 0.5 Mg/0.5 Ml Syringe) 0.5 mg IV Q2HP PRN; Protocol PRN Reason: Per Pain Protocol Last Admin: 12/05/21 11:33 Dose: 0.5 mg Lactated Ringer's (Lactated Ringers) 1,000 mls @ 84 mls/hr IV .[id number] [facility] Last Admin: 12/05/21 00:20 Dose: 84 mls/hr Sodium Chloride (Sodium Chloride 0.9%) 250 mls @ 20 mls/hr IV .[id number] [facility] Stop: 12/05/21 20:29 Ibuprofen (Ibuprofen 200 Mg Tablet) 200 mg PO Q6HP PRN PRN Reason: Pain Methocarbamol (Methocarbamol 1,000 Mg/10 Ml Vial) 750 mg IV Q6HP PRN PRN Reason: Muscle Spasm Methocarbamol (Methocarbamol 750 Mg Tablet) 750 mg PO Q6HP PRN PRN Reason: Muscle Spasm Naloxone HCl (Naloxone Hcl 0.4 Mg/Ml Vial) 0.1 mg IV Q2MIN PRN PRN Reason: Opiate Reversal Ondansetron HCl (Ondansetron 4 Mg/2 Ml Vial) 4 mg IV Q4HP PRN; Protocol PRN Reason: Nausea And Vomiting Ondansetron HCl (Ondansetron 4 Mg/2 Ml Vial) 4 mg IV Q6HP PRN PRN Reason: Nausea And Vomiting Oxycodone HCl (Oxycodone Hcl 5 Mg Tablet) 10 mg PO Q4-6HP PRN; Protocol PRN Reason: Per Pain Protocol Last Admin: 12/05/21 02:14 Dose: 10 mg Coq10 (Ubiquinol) (Cap) 1 dose PO DAILY [facility] Senna (Sennosides 1 Tablet) 2 tab PO HS [facility] Last Admin: 12/04/21 21:42 Dose: 2 tab Sodium Chloride (0.9 % Sodium Chloride 10 Ml Syringe) 10 ml IV Q8 [facility] Last Admin: 12/05/21 05:25 Dose: Not Given Sodium Chloride (0.9 % Sodium Chloride 10 Ml Syringe) 10 ml IV Q8 [facility] Last Admin: 12/05/21 05:25 Dose: Not Given Tamsulosin HCl (Tamsulosin 0.4 Mg Capsule) 0.4 mg PO QDAY [facility] Last Admin: 12/05/21 08:22 Dose: 0.4 mg Trazodone HCl (Trazodone Hcl 50 Mg Tablet) 25 mg PO HSP PRN PRN Reason: Insomnia Vitamin D (Vitamin D3 25 Mcg Tablet) 50 mcg PO DAILY [facility] Last Admin: 12/05/21 08:24 Dose: 50 mcg Zinc Sulfate (Zinc Sulfate 50 Mg Capsule) 50 mg PO DAILY [facility] Last Admin: 12/05/21 08:23 Dose: 50 mg A/P Narrative A/P Narrative: A: *Left distal femur fracture, closed, spiral: s/p ORIF (12/04) - *Left lower medial leg post-surgical breakdown: s/p skin graft (12/03) *BPH: Continue Finasteride and Flomax *Anemia, macrocytic, acute on chronic: P: -Dr. Suarez following -Dr. Morel continue to follow up -on augmentin -Transfuse 2 unit pRBC now, monitor H/H - -pt/ot -ppx: SCDs Code status: Full Plan of Treatment: Assessment: Fall at home LEFT femur closed fracture. Awaits ORIF by Dr. Suarez h/o Versajet debridement of LEFT lower leg VLU Split thickness skin graft on 12/03/2021 AM Plan: Will await ORIF Will continue to follow patient during his hospitalization. Further recommendations as the condition evolves. Spoke with patient and Nahum Torres CRNA about this patient. Time Spent With Patient Time: Total time spent is greater than 50% in coordination of care (as documented) at patient's floor/unit and/or counseling patient: QUALITY Stroke Symptom Onset Unknown: No VTE Deep Vein Thrombosis/Pulmonary Embolism Present on Admission: No
--- NOTE | 2021-12-05 14:32 | General Surgery Progress Note ---
SUBJECTIVE Subjective Patient information: Note initiated : 12/05/21 at 2:26 pm Service Date, if different from initiated Date: [] Patient: Brant Ribeiro 89 y/o M admitted on 12/04/21 for Left Knee pain. Chief Complaint: [] Additional PMFSH (Level 3 Only): 12/05/2021 Patient seen along with Suleiman Tapia RN. Reviewed operation note of Dr. Suarez from ORIF Left femur yesterday. Operation was well tolerated. Currently undergoing PRBC for anemia Constitutional Vitals: Vital Signs Temp Pulse Resp BP Pulse Ox O2 Del Method O2 Flow Rate 98.6 F 83 20 115/62 97 3 12/05/21 12:00 12/05/21 11:03 12/05/21 12:00 12/05/21 12:00 12/05/21 12:00 12/05/21 12:00 12/05/21 12:00 Period Temp Pulse Resp BP Sys/Rodriguez Pulse Ox O2 Del Method O2 Flow Rate Last 24 Hr 97.3 F-98.7 F 64-89 8-20 74-127/54-73 85-100 Nasal Cannula- Simple Mask 1-6 Intake and Output 12/05/21 12/05/21 12/05/21 05:59 13:59 21:59 Intake Total 1557 325 Output Total 1750 350 Balance -193 -25 Intake & Output: Intake & Output 12/05/21 12/05/21 12/05/21 05:59 13:59 21:59 Intake Total 1557 325 Output Total 1750 350 Balance -193 -25 Intake: IV 907 Lactated Ringers 1,000 ml @ 84 907 mls/hr IV .[id number] [facility] Rx#: [id number] Oral 650 Blood Product 325 Output: Urine Catheter Amount 1750 Void Amount 350 Other: Urine Appearance Clear Urine Color Yellow Urine Odor Normal Exam: AVSS. Unremarkable SHELBY. Has posterior leg knee brace. Left foot is PWD. edema dorsal forefoot [place] over dorsal foot was split. Toes are PWD. FROM. A/P Narrative A/P Narrative: Assessment: Satisfactory post surgical progress form both operations of past 2 days Plan: Continue present treatment. Will follow progress. Will change dressings after week end.. Plan of Treatment: Assessment: Fall at home LEFT femur closed fracture. Awaits ORIF by Dr. Suarez h/o Mega debridement of LEFT lower leg VLU Split thickness skin graft on 12/03/2021 AM Plan: Will await ORIF Will continue to follow patient during his hospitalization. Further recommendations as the condition evolves. Spoke with patient and Nahum Torres CRNA about this patient. Time Spent With Patient Time: Total time spent is greater than 50% in coordination of care (as documented) at patient's floor/unit and/or counseling patient: Total time spent with greater than 50% in coordination of care (as documented) at patient's floor/unit and/or counseling patient:: 15 - 24 minutes
[2021-12-05 18:36] LABS: Hematocrit 25.4 % (40.1-51.0); Hemoglobin 8.2 g/dL (13.7-17.5)
[2021-12-05] MEDS: SENNOSIDES 1 TABLET PO SCH (20:26)
[2021-12-06] MEDS: LACTATED RINGERS 1,000 ML IV SCH ×2 (00:47→04:35)
[2021-12-06] MEDS: oxyCODONE HCL 5 MG TABLET PO PRN ×2 (04:49→12:55)
[2021-12-06] MEDS: METHOCARBAMOL 750 MG TABLET PO PRN ×2 (04:50→16:00)
[2021-12-06] MEDS: 0.9 % SODIUM CHLORIDE 10 ML SYRINGE IV SCH ×3 (05:06→13:42)
[2021-12-06 07:48] LABS: Basophils # (Auto) 0.05 K/mcL (0.00-0.30); Basophils % (Auto) 0.5 % (0.0-2.0); Eosinophils # (Auto) 0.94 K/mcL (0.00-0.70); Eosinophils % (Auto) 10.2 % (0.0-7.0); Hematocrit 23.4 % (40.1-51.0); Hemoglobin 7.6 g/dL (13.7-17.5); Lymphocytes # (Auto) 1.17 K/mcL (1.50-4.80); Lymphocytes % (Auto) 12.7 % (15.5-49.0); Mean Cell Volume 96.7 fL (80.0-100.0); Mean Corpuscular HGB Conc 32.5 g/dL (31.0-36.0); Mean Platelet Volume 9.9 fL (8.8-12.5); Monocytes # (Auto) 0.67 K/mcL (0.10-0.90); Monocytes % (Auto) 7.3 % (1.0-12.0); Neutrophils % (Auto) 68.6 % (38.0-78.0); Platelet Count 105 K/mcL (140-440); RBC 2.42 M/mcL (4.63-6.08); Red Cell Distribution Width 16.6 % (11.5-14.5); WBC 9.2 K/mcL (4.5-11.0)
--- NOTE | 2021-12-06 08:52 | Internal Med Progress Note ---
SUBJECTIVE Subjective Patient information: Note initiated : 12/06/21 at 8:49 am Service Date, if different from initiated Date: [] Patient: Brant Ribeiro a 89 y/o M admitted on 12/04/21 for Left Knee pain. Chief Complaint: [] Interval history: Mr. Ribeiro is a 89 year old M status post bilateral shoulder and knee replacement, BPH, presenting with accidental fall with resultant left distal thigh/knee pain. Patient's had a skin graft by Dr. Morel for a post surgical wound of the left lower medial leg. He received a nerve block for the procedures. He was being discharged home the same day yesterday. When he was ambulating with stools/to walker in his house, it tipped over to the cushion and he lost balance and he could not feel his leg so he fell. He denies any passing out. He denies any chest pain palpitations or shortness of breath. His neighbor helped him to get up and called the EMS to send the patient to our ED for evaluations. Imaging showing left distal femur spiral fractures. Orthopedic surgeon Dr. Suarez notified, plan to take the patient to the OR this afternoon at 2 PM for surgical fixations. Patient was complaining about 10 out of 10 sharp pain yesterday right after the incident, but right now he is complaining of no pain whatsoever. 12/05: s/p ORIF left femoral fracture by orthopedic surgeon Dr. Suarez on 12/04. Tolerated the procedure well. He is currently complaining of pinching sensation of his left knee at the moment, mild. H&H 6.7 and 21.4 this morning. He denies any shortness of breath or palpitations or chest pain. Will transfuse 2 unit PRBC right now and will recheck H&H this evening after finishing the blood transfusions. Postpone physical therapy and Occupational Therapy. Continue pain management as needed for left thigh/knee postsurgical pain. 12/06 No overnight event or new complaints. Hemoglobin mildly better after blood transfusion yesterday.. However patient is on oxygen and says he does not use oxygen during the day. Does use CPAP at night. 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 I suspect patient's been borderline hypoxic for some time because of the fibrosis and COPD changes. Patient denies dyspnea. Review of Systems: denies headache/fever/chills/nausea/vomiting/chest or abdominal pain/cough/dyspnea/diarrhea. Otherwise see above. Constitutional Vitals: Vital Signs Temp Pulse Resp BP Pulse Ox O2 Del Method O2 Flow Rate 98.1 F 85 16 100/59 93 2 12/06/21 08:00 12/06/21 03:37 12/06/21 08:00 12/06/21 08:00 12/06/21 08:00 12/06/21 08:00 12/06/21 08:00 Period Temp Pulse Resp BP Sys/Rodriguez Pulse Ox O2 Del Method O2 Flow Rate Last 24 Hr 97.4 F-99.6 F 75-90 - 97-115/48-79 91-97 Nasal Cannula- Room Air 1-3 Intake and Output 12/05/21 12/06/21 12/06/21 21:59 05:59 13:59 Intake Total 360 986 Output Total 500 1250 575 Balance -140 -264 -575 Weight 93.61 kg Intake & Output: Intake & Output 12/05/21 12/06/21 12/06/21 21:59 05:59 13:59 Intake Total 360 986 Output Total 500 1250 575 Balance -140 -264 -575 Weight 93.61 kg Intake: IV 986 Lactated Ringers 1,000 ml @ 84 986 mls/hr IV .[id number] [facility] Rx#: [id number] Oral 240 Blood Product 120 Output: Void Amount 500 1250 575 Other: Meal Dinner Percent of Meal Consumed 100% Feeding Ability Independent Urine Appearance Clear Clear Clear Urine Color Yellow Pale Bright Yellow Urine Odor Normal Stool Size Moderate Stool Consistency Dry and Hard Exam: General: Alert, Awake, No acute Distress Eyes/N/T: EOMI, Head/Neck: neck supple, CV: reg with irregularity, 2/6SM Pulm: Clear b/l, no wheezing/rhonchi/rales Abd: soft, nontender, +BS x4 Ext: no clubbing/cyanosis/edema. LLE surgical dressing and cast Neuro: Alert, no focal deficits, moves all extremities, Skin: warm/dry OBJ DATA Labs CBC & Chem 7: 12/06/21 06:06 12/05/21 05:27 Labs: Abnormal Lab Results 12/06/21 12/05/21 12/05/21 06:06 17:57 05:27 WBC RBC 2.42 L Hgb 7.6 L 8.2 L Hct 23.4 L 25.4 L MCV RDW 16.6 H Plt Count 105 L Immature Gran % (Auto) 0.7 H Neut % (Auto) Lymph % (Auto) 12.7 L Eos % (Auto) 10.2 H Lymph # (Auto) 1.17 L Eos # (Auto) 0.94 H Immature Gran # 0.06 H Absolute Neutrophils Glucose 151 H Calcium 8.4 L 12/05/21 12/04/21 12/04/21 05:27 00:22 00:22 WBC 12.5 H RBC 2.11 L 2.85 L Hgb 6.7 L* 9.0 L Hct 21.4 L 28.3 L MCV 101.4 H RDW Plt Count 121 L Immature Gran % (Auto) Neut % (Auto) 86.5 H 90.7 H Lymph % (Auto) 7.3 L 4.4 L Eos % (Auto) Lymph # (Auto) 0.72 L 0.55 L Eos # (Auto) Immature Gran # 0.06 H Absolute Neutrophils 8.58 H 11.38 H Glucose 152 H Calcium Meds: Medications Acetaminophen (Acetaminophen 325 Mg Tablet) 650 mg PO Q6HP PRN; Protocol PRN Reason: Per Pain Protocol/Fever > 101 Albuterol/Ipratropium (Ipratropium/Albuterol 3 Ml Ampul.Neb) 3 ml NEB Q4HRT PRN PRN Reason: Wheezing Amoxicillin/Clavulanate Potassium (Amoxicillin/Potassium Clav 875 Mg Tablet) 87 5 mg PO BID [facility]; Protocol Last Admin: 12/05/21 20:26 Dose: 875 mg Ascorbic Acid (Ascorbic Acid 500 Mg Tablet) 1,000 mg PO DAILY [facility] Last Admin: 12/05/21 08:24 Dose: 1,000 mg Cetirizine HCl (Cetirizine 10 Mg Tablet) 10 mg PO QDAY [facility] Last Admin: 12/05/21 08:23 Dose: 10 mg Docusate Sodium (Docusate Sodium 100 Mg Capsule) 100 mg PO BID [facility] Last Admin: 12/05/21 20:26 Dose: 100 mg Ferrous Sulfate (Ferrous Sulfate 325 Mg Tablet) 325 mg PO QDAY [facility] Last Admin: 12/05/21 08:23 Dose: 325 mg Finasteride (Finasteride 5 Mg Tablet) 5 mg PO QDAY [facility] Last Admin: 12/05/21 08:24 Dose: 5 mg Fish Oil (Fish Oil 1,000 Mg Capsule) 1,000 mg PO DAILY [facility] Last Admin: 12/05/21 08:23 Dose: 1,000 mg Gabapentin (Gabapentin 300 Mg Capsule) 300 mg PO TID [facility] Last Admin: 12/05/21 20:26 Dose: 300 mg Guaifenesin (Guaifenesin 600 Mg Tab.Sr.12h) 1,200 mg PO DAILY [facility] Last Admin: 12/05/21 08:23 Dose: 1,200 mg Hydromorphone HCl (Hydromorphone 0.5 Mg/0.5 Ml Syringe) 0.5 mg IV Q2HP PRN; Protocol PRN Reason: Per Pain Protocol Last Admin: 12/05/21 11:33 Dose: 0.5 mg Lactated Ringer's (Lactated Ringers) 1,000 mls @ 84 mls/hr IV .[id number] [facility] Last Admin: 12/06/21 04:35 Dose: 84 mls/hr Ibuprofen (Ibuprofen 200 Mg Tablet) 200 mg PO Q6HP PRN PRN Reason: Pain Methocarbamol (Methocarbamol 1,000 Mg/10 Ml Vial) 750 mg IV Q6HP PRN PRN Reason: Muscle Spasm Methocarbamol (Methocarbamol 750 Mg Tablet) 750 mg PO Q6HP PRN PRN Reason: Muscle Spasm Last Admin: 12/06/21 04:50 Dose: 750 mg Naloxone HCl (Naloxone Hcl 0.4 Mg/Ml Vial) 0.1 mg IV Q2MIN PRN PRN Reason: Opiate Reversal Ondansetron HCl (Ondansetron 4 Mg/2 Ml Vial) 4 mg IV Q4HP PRN; Protocol PRN Reason: Nausea And Vomiting Ondansetron HCl (Ondansetron 4 Mg/2 Ml Vial) 4 mg IV Q6HP PRN PRN Reason: Nausea And Vomiting Oxycodone HCl (Oxycodone Hcl 5 Mg Tablet) 10 mg PO Q4-6HP PRN; Protocol PRN Reason: Per Pain Protocol Last Admin: 12/06/21 04:49 Dose: 5 mg Coq10 (Ubiquinol) (Cap) 1 dose PO DAILY [facility] Last Admin: 12/05/21 15:35 Dose: Not Given Senna (Sennosides 1 Tablet) 2 tab PO HS [facility] Last Admin: 12/05/21 20:26 Dose: 2 tab Sodium Chloride (0.9 % Sodium Chloride 10 Ml Syringe) 10 ml IV Q8 [facility] Last Admin: 12/06/21 05:06 Dose: Not Given Sodium Chloride (0.9 % Sodium Chloride 10 Ml Syringe) 10 ml IV Q8 [facility] Last Admin: 12/06/21 05:06 Dose: Not Given Tamsulosin HCl (Tamsulosin 0.4 Mg Capsule) 0.4 mg PO QDAY [facility] Last Admin: 12/05/21 08:22 Dose: 0.4 mg Trazodone HCl (Trazodone Hcl 50 Mg Tablet) 25 mg PO HSP PRN PRN Reason: Insomnia Vitamin D (Vitamin D3 25 Mcg Tablet) 50 mcg PO DAILY [facility] Last Admin: 12/05/21 08:24 Dose: 50 mcg Zinc Sulfate (Zinc Sulfate 50 Mg Capsule) 50 mg PO DAILY [facility] Last Admin: 12/05/21 08:23 Dose: 50 mg A/P Narrative A/P Narrative: A: *Left distal femur fracture, closed, spiral: s/p ORIF (12/04) - *Left lower medial leg post-surgical breakdown: s/p skin graft (12/03) *Anemia, macrocytic, acute on chronic: -s/p 2prbc(12/05) *?acute on likely chronic hypoxic respiratory failure: 2/2 pulmonary fibrosis and COPD *Pulmonary fibrosis/COPD: *ABIGAIL: uses cpap at night P: -Dr. Suarez following -Dr. Morel continue to follow up -monitor H/H -Supplemental O2 and wean off if able -RT to eval for home oxygen prior to d/c -cpap -pt/ot -ppx: heparin Code status: Depilatory Painter Spent With Patient Time: Total time spent is greater than 50% in coordination of care (as documented) at patient's floor/unit and/or counseling patient: Total time spent with greater than 50% in coordination of care (as documented) at patient's floor/unit and/or counseling patient:: 25 - 35 minutes QUALITY Stroke Symptom Onset Unknown: No VTE Deep Vein Thrombosis/Pulmonary Embolism Present on Admission: No
[2021-12-06] MEDS: DOCUSATE SODIUM 100 MG CAPSULE PO SCH ×2 (09:53→20:41)
[2021-12-06] MEDS: GABAPENTIN 300 MG CAPSULE PO SCH ×3 (09:53→20:41)
[2021-12-06] MEDS: AMOXICILLIN/POTASSIUM CLAV 875 MG TABLET PO SCH ×2 (09:54→20:41)
[2021-12-06] MEDS: FERROUS SULFATE 325 MG TABLET PO SCH (09:54)
[2021-12-06] MEDS: FINASTERIDE 5 MG TABLET PO SCH (09:55)
[2021-12-06] MEDS: ZINC SULFATE 50 MG CAPSULE PO SCH (09:55)
[2021-12-06] MEDS: ASCORBIC ACID 500 MG TABLET PO SCH (09:55)
[2021-12-06] MEDS: TAMSULOSIN 0.4 MG CAPSULE PO SCH (09:55)
[2021-12-06] MEDS ORDERED: ceFAZolin 1 GM VIAL IV SCH (10:30)
[2021-12-06] MEDS: HEPARIN 5,000 UNIT/ML VIAL SQ SCH (10:58)
--- NOTE | 2021-12-06 11:11 | XRay Report ---
INDICATION: fibrosis/copd vs acute pathology, hypoxia TECHNIQUE: AP portable chest x-ray COMPARISON: Previous chest CT scan dated 09/12/2018. Previous chest x-rays dated 12/04/2021, 05/23/2018, 05/19/2017 FINDINGS: Lungs:History of pulmonary fibrosis. Diffuse pulmonary parenchymal abnormality, left slightly worse than right. There has been interval progression since 05/23/2018. Superimposed pneumonia cannot be excluded. No focal parenchymal consolidation. Heart, vascular:There is cardiomegaly, unchanged. Mediastinum, wilver:No mediastinal widening. No hilar mass Pleura:Elevated left hemidiaphragm is chronic Skeletal:Bilateral reverse shoulder arthroplasty IMPRESSION: 1. Interstitial infiltrates consistent with this patient's known pulmonary fibrosis. 2. Interval progression since 05/23/2018 3. Chronic elevation of the left hemidiaphragm Interpreted and Authenticated by: Brant Canas 12/06/21
--- NOTE | 2021-12-06 15:41 | General Surgery Progress Note ---
SUBJECTIVE Subjective Patient information: Note initiated : 12/06/21 at 3:37 pm Service Date, if different from initiated Date: [] Patient: Brant Ribeiro 89 y/o M admitted on 12/04/21 for Left Knee pain. Chief Complaint: [] Additional PMFSH (Level 3 Only): 12/06/2021 Patient resting comfortably. Had pain med about an hour ago. Progress reviewed with nursing staff. Constitutional Vitals: Vital Signs Temp Pulse Resp BP Pulse Ox O2 Del Method O2 Flow Rate 97.8 F 85 20 114/66 91 2 12/06/21 12:00 12/06/21 03:37 12/06/21 12:00 12/06/21 12:00 12/06/21 12:00 12/06/21 12:00 12/06/21 12:00 Period Temp Pulse Resp BP Sys/Rodriguez Pulse Ox O2 Del Method O2 Flow Rate Last 24 Hr 97.8 F-99.6 F 75-90 - 97-114/48-79 91-95 Nasal Cannula- Room Air 1-3 Intake and Output 12/06/21 12/06/21 12/06/21 05:59 13:59 21:59 Intake Total 986 Output Total 1250 975 Balance -264 -975 Intake & Output: Intake & Output 12/06/21 12/06/21 12/06/21 05:59 13:59 21:59 Intake Total 986 Output Total 1250 975 Balance -264 -975 Intake: IV 986 Lactated Ringers 1,000 ml @ 84 986 mls/hr IV .[id number] [facility] Rx#: [id number] Output: Void Amount 1250 975 Other: Meal Breakfast Percent of Meal Consumed 100% Feeding Ability Independent Urine Appearance Clear Clear Urine Color Pale Bright Yellow Stool Size Moderate Stool Consistency Dry and Hard Exam: AVSS. No interval changes SHELBY. LLE. Resolving edema of foot Toes PWD NWB left LE. Knee brace in situ. A/P Narrative A/P Narrative: Assessment: Progressing well. Plan of Treatment: Plan: Continue present treatment. Reassess after w/e on Wednesday. Time Spent With Patient Time: Total time spent is greater than 50% in coordination of care (as documented) at patient's floor/unit and/or counseling patient: Total time spent with greater than 50% in coordination of care (as documented) at patient's floor/unit and/or counseling patient:: 15 - 24 minutes
[2021-12-06] MEDS: ceFAZolin 1 GM VIAL IV SCH (18:55)
[2021-12-06] MEDS: SENNOSIDES 1 TABLET PO SCH (20:41)
[2021-12-07] MEDS: HEPARIN 5,000 UNIT/ML VIAL SQ SCH ×3 (03:47→20:07)
[2021-12-07] MEDS: 0.9 % SODIUM CHLORIDE 10 ML SYRINGE IV SCH ×4 (03:48→21:14)
--- NOTE | 2021-12-07 08:55 | Internal Med Progress Note ---
SUBJECTIVE Subjective Patient information: Note initiated : 12/07/21 at 8:53 am Service Date, if different from initiated Date: [] Patient: Brant Ribeiro a 89 y/o M admitted on 12/04/21 for Left Knee pain. Chief Complaint: [] Interval history: Mr. Ribeiro is a 89 year old M status post bilateral shoulder and knee replacement, BPH, presenting with accidental fall with resultant left distal thigh/knee pain. Patient's had a skin graft by Dr. Morel for a post surgical wound of the left lower medial leg. He received a nerve block for the procedures. He was being discharged home the same day yesterday. When he was ambulating with stools/to walker in his house, it tipped over to the cushion and he lost balance and he could not feel his leg so he fell. He denies any passing out. He denies any chest pain palpitations or shortness of breath. His neighbor helped him to get up and called the EMS to send the patient to our ED for evaluations. Imaging showing left distal femur spiral fractures. Orthopedic surgeon Dr. Suarez notified, plan to take the patient to the OR this afternoon at 2 PM for surgical fixations. Patient was complaining about 10 out of 10 sharp pain yesterday right after the incident, but right now he is complaining of no pain whatsoever. 12/05: s/p ORIF left femoral fracture by orthopedic surgeon Dr. Suarez on 12/04. Tolerated the procedure well. He is currently complaining of pinching sensation of his left knee at the moment, mild. H&H 6.7 and 21.4 this morning. He denies any shortness of breath or palpitations or chest pain. Will transfuse 2 unit PRBC right now and will recheck H&H this evening after finishing the blood transfusions. Postpone physical therapy and Occupational Therapy. Continue pain management as needed for left thigh/knee postsurgical pain. 12/06 No overnight event or new complaints. Hemoglobin mildly better after blood transfusion yesterday.. However patient is on oxygen and says he does not use oxygen during the day. Does use CPAP at night. 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 I suspect patient's been borderline hypoxic for some time because of the fibrosis and COPD changes. Patient denies dyspnea. 12/07 Patient feeling better today. No overnight event or new complaints. On his home CPAP last night. On room air this morning. Blood pressure systolic around 100. Hemoglobin stable. Review of Systems: denies headache/fever/chills/nausea/vomiting/chest or abdominal pain/cough/dyspnea/diarrhea. Otherwise see above. Constitutional Vitals: Vital Signs Temp Pulse Resp BP Pulse Ox O2 Del Method O2 Flow Rate 98 F 69 20 101/62 99 4 12/07/21 07:18 12/07/21 07:18 12/07/21 07:18 12/07/21 07:18 12/07/21 07:18 12/07/21 07:18 12/07/21 06:40 Period Temp Pulse Resp BP Sys/Rodriguez Pulse Ox O2 Del Method O2 Flow Rate Last 24 Hr 97.8 F-98.9 F 63-81 18-96 99-114/55-68 91-100 CPAP-Room Air 2-4 Intake and Output 12/06/21 12/07/21 12/07/21 21:59 05:59 13:59 Intake Total 1480 Output Total 101 1200 650 Balance 1379 -1200 -650 Weight 94.517 kg Intake & Output: Intake & Output 12/06/21 12/07/21 12/07/21 21:59 05:59 13:59 Intake Total 1480 Output Total 101 1200 650 Balance 1379 -1200 -650 Weight 94.517 kg Intake: IV 1000 Lactated Ringers 1,000 ml @ 84 1000 mls/hr IV .[id number] Rx#: [id number] Oral 480 Output: Void Amount 100 1200 650 # of times incontinent of urine 1 Other: Urine Appearance Clear Clear Urine Color Pale Yellow Stool Size Small Stool Color Brown Stool Consistency Ofe # Voids 1 # Bowel Movements 1 # of times incontinent of 0 Bowels Exam: General: Alert, Awake, No acute Distress Eyes/N/T: EOMI, Head/Neck: neck supple, CV: reg with occ irregularity, 2/6SM Pulm: Clear b/l, no wheezing/rhonchi/rales Abd: soft, nontender, +BS x4 Ext: no clubbing/cyanosis/edema. LLE surgical dressing and cast Neuro: Alert, no focal deficits, moves all extremities, Skin: warm/dry OBJ DATA Labs CBC & Chem 7: 12/07/21 09:09 12/07/21 09:09 Labs: Abnormal Lab Results 12/06/21 12/05/21 12/05/21 06:06 17:57 05:27 RBC 2.42 L Hgb 7.6 L 8.2 L Hct 23.4 L 25.4 L MCV RDW 16.6 H Plt Count 105 L Immature Gran % (Auto) 0.7 H Neut % (Auto) Lymph % (Auto) 12.7 L Eos % (Auto) 10.2 H Lymph # (Auto) 1.17 L Eos # (Auto) 0.94 H Immature Gran # 0.06 H Absolute Neutrophils Glucose 151 H Calcium 8.4 L 12/05/21 05:27 RBC 2.11 L Hgb 6.7 L* Hct 21.4 L MCV 101.4 H RDW Plt Count 121 L Immature Gran % (Auto) Neut % (Auto) 86.5 H Lymph % (Auto) 7.3 L Eos % (Auto) Lymph # (Auto) 0.72 L Eos # (Auto) Immature Gran # Absolute Neutrophils 8.58 H Glucose Calcium Meds: Medications Acetaminophen (Acetaminophen 325 Mg Tablet) 650 mg PO Q6HP PRN; Protocol PRN Reason: Per Pain Protocol/Fever > 101 Albuterol/Ipratropium (Ipratropium/Albuterol 3 Ml Ampul.Neb) 3 ml NEB Q4HRT PRN PRN Reason: Wheezing Amoxicillin/Clavulanate Potassium (Amoxicillin/Potassium Clav 875 Mg Tablet) 875 mg PO BID [facility]; Protocol Last Admin: 12/06/21 20:41 Dose: 875 mg Ascorbic Acid (Ascorbic Acid 500 Mg Tablet) 1,000 mg PO DAILY [facility] Last Admin: 12/06/21 09:55 Dose: 1,000 mg Docusate Sodium (Docusate Sodium 100 Mg Capsule) 100 mg PO BID [facility] Last Admin: 12/06/21 20:41 Dose: 100 mg Ferrous Sulfate (Ferrous Sulfate 325 Mg Tablet) 325 mg PO QDAY [facility] Last Admin: 12/06/21 09:54 Dose: 325 mg Finasteride (Finasteride 5 Mg Tablet) 5 mg PO QDAY [facility] Last Admin: 12/06/21 09:55 Dose: 5 mg Gabapentin (Gabapentin 300 Mg Capsule) 300 mg PO TID [facility] Last Admin: 12/06/21 20:41 Dose: 300 mg Heparin Sodium (Porcine) (Heparin 5,000 Unit/Ml Vial) 5,000 unit SQ Q12 [facility] Last Admin: 12/07/21 03:47 Dose: 5,000 unit Hydromorphone HCl (Hydromorphone 0.5 Mg/0.5 Ml Syringe) 0.5 mg IV Q2HP PRN; Protocol PRN Reason: Per Pain Protocol Last Admin: 12/05/21 11:33 Dose: 0.5 mg Ibuprofen (Ibuprofen 200 Mg Tablet) 200 mg PO Q6HP PRN PRN Reason: Pain Methocarbamol (Methocarbamol 1,000 Mg/10 Ml Vial) 750 mg IV Q6HP PRN PRN Reason: Muscle Spasm Methocarbamol (Methocarbamol 750 Mg Tablet) 750 mg PO Q6HP PRN PRN Reason: Muscle Spasm Last Admin: 12/06/21 16:00 Dose: 750 mg Naloxone HCl (Naloxone Hcl 0.4 Mg/Ml Vial) 0.1 mg IV Q2MIN PRN PRN Reason: Opiate Reversal Ondansetron HCl (Ondansetron 4 Mg/2 Ml Vial) 4 mg IV Q4HP PRN; Protocol PRN Reason: Nausea And Vomiting Ondansetron HCl (Ondansetron 4 Mg/2 Ml Vial) 4 mg IV Q6HP PRN PRN Reason: Nausea And Vomiting Oxycodone HCl (Oxycodone Hcl 5 Mg Tablet) 5 - 10 mg PO Q4-6HP PRN; Protocol PRN Reason: Per Pain Protocol Senna (Sennosides 1 Tablet) 2 tab PO HS [facility] Last Admin: 12/06/21 20:41 Dose: 2 tab Sodium Chloride (0.9 % Sodium Chloride 10 Ml Syringe) 10 ml IV Q8 [facility] Last Admin: 12/07/21 06:00 Dose: 10 ml Tamsulosin HCl (Tamsulosin 0.4 Mg Capsule) 0.4 mg PO QDAY [facility] Last Admin: 12/06/21 09:55 Dose: 0.4 mg Trazodone HCl (Trazodone Hcl 50 Mg Tablet) 25 mg PO HSP PRN PRN Reason: Insomnia Zinc Sulfate (Zinc Sulfate 50 Mg Capsule) 50 mg PO DAILY [facility] Last Admin: 12/06/21 09:55 Dose: 50 mg A/P Narrative A/P Narrative: A: *Left distal femur fracture, closed, spiral: s/p ORIF (12/04) *Left lower medial leg post-surgical breakdown: s/p skin graft (12/03) *Anemia, macrocytic, acute on chronic: -s/p 2prbc(12/05), stable *?acute on likely chronic hypoxic respiratory failure: 2/2 pulmonary fibrosis and COPD -now on room air *Pulmonary fibrosis/COPD: *ABIGAIL: uses cpap at night P: -Dr. Suarez following -Dr. Morel following -monitor H/H -Supplemental O2 and wean off if able -RT to eval for home oxygen prior to d/c -cpap -pt/ot -ppx: heparin Code status: Air Tester Spent With Patient Time: Total time spent is greater than 50% in coordination of care (as documented) at patient's floor/unit and/or counseling patient: Total time spent with greater than 50% in coordination of care (as documented) at patient's floor/unit and/or counseling patient:: 25 - 35 minutes QUALITY Stroke Symptom Onset Unknown: No VTE Deep Vein Thrombosis/Pulmonary Embolism Present on Admission: No
[2021-12-07] MEDS: ZINC SULFATE 50 MG CAPSULE PO SCH (09:13)
[2021-12-07] MEDS: DOCUSATE SODIUM 100 MG CAPSULE PO SCH ×2 (09:13→20:07)
[2021-12-07] MEDS: GABAPENTIN 300 MG CAPSULE PO SCH ×3 (09:13→20:07)
[2021-12-07] MEDS: ASCORBIC ACID 500 MG TABLET PO SCH (09:13)
[2021-12-07] MEDS: oxyCODONE HCL 5 MG TABLET PO PRN ×3 (09:13→18:02)
[2021-12-07] MEDS: TAMSULOSIN 0.4 MG CAPSULE PO SCH (09:14)
[2021-12-07] MEDS: FERROUS SULFATE 325 MG TABLET PO SCH (09:14)
[2021-12-07] MEDS: FINASTERIDE 5 MG TABLET PO SCH (09:14)
[2021-12-07] MEDS: AMOXICILLIN/POTASSIUM CLAV 875 MG TABLET PO SCH ×2 (09:14→20:07)
[2021-12-07 09:46] LABS: Basophils # (Auto) 0.05 K/mcL (0.00-0.30); Basophils % (Auto) 0.6 % (0.0-2.0); Eosinophils # (Auto) 0.84 K/mcL (0.00-0.70); Eosinophils % (Auto) 9.3 % (0.0-7.0); Hematocrit 25.9 % (40.1-51.0); Hemoglobin 8.1 g/dL (13.7-17.5); Lymphocytes # (Auto) 0.79 K/mcL (1.50-4.80); Lymphocytes % (Auto) 8.7 % (15.5-49.0); Mean Cell Volume 97.7 fL (80.0-100.0); Mean Corpuscular HGB Conc 31.3 g/dL (31.0-36.0); Mean Platelet Volume 9.8 fL (8.8-12.5); Monocytes # (Auto) 0.52 K/mcL (0.10-0.90); Monocytes % (Auto) 5.8 % (1.0-12.0); Neutrophils % (Auto) 74.9 % (38.0-78.0); Platelet Count 122 K/mcL (140-440); RBC 2.65 M/mcL (4.63-6.08); Red Cell Distribution Width 15.8 % (11.5-14.5)
[2021-12-07 10:17] LABS: Blood Urea Nitrogen 13 mg/dL (8-23); Calcium 8.6 mg/dL (8.6-10.4); Carbon Dioxide 28 mmol/L (22-30); Chloride 99 mmol/L (96-108); Glomerular Filtration Rate 79; Glucose 165 mg/dL (70-105)
--- NOTE | 2021-12-07 13:08 | Discharge Summary ---
Discharge Provider Provider IMPORTANT FOLLOW-UP INFORMATION FOR PCP: Patient information: Note initiated : 12/07/21 at 1:05 pm Service Date, if different from initiated Date: [] Patient: Brant Ribeiro 89 y/o M admitted on 12/04/21 for Left Knee pain. Chief Complaint: [] Date of admission: 12/04/21 02:30 Discharge date: 12/09/21 Primary care physician: Kaylah Conn Consults: 12/04/21 Consult to Physician [CONS] Stat Comment: Consulting Provider: Robson Suarez Reason For Exam: Physician to Consult Consult to Physician [CONS] Stat Comment: Consulting Provider: Kurtis Kineny Reason For Exam: Physician to Consult 12/04/21 09:00 Consult to Physician [CONS] Routine Comment: Consulting Provider: Paulo Morel Reason For Exam: Physician to Consult COURSE Hospital Course Hospital course: Interval history: Mr. Ribeiro is a 89 year old M status post bilateral shoulder and knee replacement, BPH, presenting with accidental fall with resultant left distal thigh/knee pain. Patient's had a skin graft by Dr. Morel for a post surgical wound of the left lower medial leg. He received a nerve block for the procedures. He was being discharged home the same day yesterday. When he was ambulating with stools/to walker in his house, it tipped over to the cushion and he lost balance and he could not feel his leg so he fell. He denies any passing out. He denies any chest pain palpitations or shortness of breath. His neighbor helped him to get up and called the EMS to send the patient to our ED for evaluations. Imaging showing left distal femur spiral fractures. Orthopedic surgeon Dr. Suarez notified, plan to take the patient to the OR this afternoon at 2 PM for surgical fixations. Patient was complaining about 10 out of 10 sharp pain yesterday right after the incident, but right now he is complaining of no pain whatsoever. 12/05: s/p ORIF left femoral fracture by orthopedic surgeon Dr. Suarez on 12/04. Tolerated the procedure well. He is currently complaining of pinching sensation of his left knee at the moment, mild. H&H 6.7 and 21.4 this morning. He denies any shortness of breath or palpitations or chest pain. Will transfuse 2 unit PRBC right now and will recheck H&H this evening after finishing the blood transfusions. Postpone physical therapy and Occupational Therapy. Continue pain management as needed for left thigh/knee postsurgical pain. 12/06 No overnight event or new complaints. Hemoglobin mildly better after blood transfusion yesterday.. However patient is on oxygen and says he does not use oxygen during the day. Does use CPAP at night. 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 I suspect patient's been borderline hypoxic for some time because of the fibrosis and COPD changes. Patient denies dyspnea. 12/07 Patient feeling better today. No overnight event or new complaints. On his home CPAP last night. On room air this morning. Blood pressure systolic around 100. Hemoglobin stable. 12/08 Patient seems to be doing well today. Patient is on room air this morning. Vital signs stable. She is still quite debilitated and will need rehab which we are working on. 12/09 No overnight event or new complaints. Patient stable for discharge. A: *Left distal femur fracture, closed, spiral: s/p ORIF (12/04) *Left lower medial leg post-surgical breakdown: s/p skin graft (12/03) *Anemia, macrocytic, acute on chronic: -s/p 2prbc(12/05), stable *?acute on likely chronic hypoxic respiratory failure: 2/2 pulmonary fibrosis and COPD -now on room air *Pulmonary fibrosis/COPD: *ABIGAIL: uses cpap at night P: -f/u with Dr. Suarez -f/u with Dr. Morel -RT to [facility] for home oxygen prior to d/c Discharge diagnosis: Femur fracture surgical wound breakdown acute on chronic anemia acute hypox Secondary discharge diagnosis: Acute on chronic hypoxic respite failure pulmonary fibrosis and COPD obstructive sleep apnea Time Spent with Patient Time attestation: Total time spent providing and/or coordinating discharge services: Time spent: Greater than 30 minutes EXAM Constitutional Vitals: Temp Pulse Resp BP Pulse Ox O2 Del Method O2 Flow Rate 97.7 F 65 18 106/60 98 4 12/07/21 11:24 12/07/21 11:24 12/07/21 11:24 12/07/21 11:24 12/07/21 11:24 12/07/21 11:24 12/07/21 06:40 Discharge Data Data Completed and Pending Labs on day of discharge: Labs from last 24 hours 12/07/21 12/07/21 09:09 09:09 WBC 9.0 RBC 2.65 L Hgb 8.1 L Hct 25.9 L MCV 97.7 MCH 30.6 MCHC 31.3 RDW 15.8 H Plt Count 122 L MPV 9.8 Immature Gran % (Auto) 0.7 H Neut % (Auto) 74.9 Lymph % (Auto) 8.7 L [place] % (Auto) 5.8 Eos % (Auto) 9.3 H Baso % (Auto) 0.6 Lymph # (Auto) 0.79 L [place] # (Auto) 0.52 Eos # (Auto) 0.84 H Baso # (Auto) 0.05 Immature Gran # 0.06 H Absolute Neutrophils 6.78 Sodium 135 Potassium 4.1 Chloride 99 Carbon Dioxide 28 Anion Gap 8.0 BUN 13 Creatinine 0.8 GFR Calculation 79 Glucose 165 H Calcium 8.6 Discharge Plan Patient/Caregiver Discharge Instructions Activity: increase activity as tolerated Diet: Regular Diet Prescriptions: New oxycodone-acetaminophen 5-325 mg tablet 1 tab PO Q8H PRN (Reason: pain) Qty: 10 0RF Continued tamsulosin 0.4 mg Capsule 0.4 mg PO QDAY ferrous sulfate 325 mg (65 mg iron) Tablet 325 mg PO QDAY finasteride 5 mg Tablet 5 mg PO QDAY gabapentin 300 mg Tablet 300 mg PO TID ascorbic acid (vitamin C) 1,000 mg Tablet 1 g PO DAILY cetirizine [Aller-Dee] 10 mg Tablet 10 mg PO QDAY nszrmez-ljufijbuk-cgst Tablet 1 tab PO DAILY zinc 50 mg Tablet 50 mg PO DAILY vitamins-lipotropics Tablet 1 tab PO BID omega-3 fatty acids-vitamin E 1,000 mg Capsule 1 cap PO DAILY Mucinex 1,200 mg Tablet Extended Release 12hr 1,200 mg PO DAILY cholecalciferol (vitamin D3) [Vitamin D3] 50 mcg (2,000 unit) Capsule 50 mcg PO QDAY coQ10 (ubiquinol) 1 cap PO DAILY ibuprofen [Advil Liqui-Gel] 200 mg Capsule 200 mg PO Q6H PRN (Reason: Pain) acetaminophen 650 mg Tablet Extended Release 650 mg PO Q12H PRN (Reason: Pain) Sanguenol Nitric Oxide 1 cap PO BID Discontinued amoxicillin-pot clavulanate 875-125 mg Tablet 1 tab PO BID MDD 30 DAYS Rx Instructions: 30 DAYS Follow Up Plan Follow up with: Paulo Morel MD [Physician] - Robson Suarez MD [Physician] - Kaylah Conn MD [Primary Care Provider] - Patient Disposition: Xfer SNF Prognosis: Fair Rehab Potential: Fair I certify that the patient requires SNF services: Yes Overall status at discharge: patient is progressing back to baseline Discharge Orders: Discharge Order (Routine); Ordered 12/09/21 Ordered By: Americo Correa [facility] VTE Deep Vein Thrombosis/Pulmonary Embolism Present on Admission: No
[2021-12-07] MEDS: SENNOSIDES 1 TABLET PO SCH (20:07)
[2021-12-08] MEDS: 0.9 % SODIUM CHLORIDE 10 ML SYRINGE IV SCH ×3 (05:32→20:17)
--- NOTE | 2021-12-08 08:11 | EKG ---
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 Measurements Intervals [place] Rate: 79 P: 20 PA: 240 QRS: -27 QRSD: 96 T: 76 QT: 353 QTc: 405 Interpretive Statements Sinus rhythm Ventricular premature complex blocked PAC FIRST DEGREE AV BLOCK Electronically Signed On 12-08-2021 8:10:57 PDT by Brant Amato M.D. /store/[email or web address]/[id number]
[2021-12-08] MEDS: TAMSULOSIN 0.4 MG CAPSULE PO SCH (09:03)
[2021-12-08] MEDS: ASCORBIC ACID 500 MG TABLET PO SCH (09:03)
[2021-12-08] MEDS: AMOXICILLIN/POTASSIUM CLAV 875 MG TABLET PO SCH ×2 (09:03→20:16)
[2021-12-08] MEDS: GABAPENTIN 300 MG CAPSULE PO SCH ×3 (09:04→20:16)
[2021-12-08] MEDS: FINASTERIDE 5 MG TABLET PO SCH (09:04)
[2021-12-08] MEDS: FERROUS SULFATE 325 MG TABLET PO SCH (09:04)
[2021-12-08] MEDS: HEPARIN 5,000 UNIT/ML VIAL SQ SCH ×2 (09:04→20:14)
[2021-12-08] MEDS: ZINC SULFATE 50 MG CAPSULE PO SCH (09:04)
[2021-12-08] MEDS: DOCUSATE SODIUM 100 MG CAPSULE PO SCH ×2 (09:04→20:16)
--- NOTE | 2021-12-08 10:16 | Internal Med Progress Note ---
SUBJECTIVE Subjective Patient information: Note initiated : 12/08/21 at 10:15 am Service Date, if different from initiated Date: [] Patient: Brant Ribeiro a 89 y/o M admitted on 12/04/21 for Left Knee pain. Chief Complaint: [] Interval history: Mr. Ribeiro is a 89 year old M status post bilateral shoulder and knee replacement, BPH, presenting with accidental fall with resultant left distal thigh/knee pain. Patient's had a skin graft by Dr. Morel for a post surgical wound of the left lower medial leg. He received a nerve block for the procedures. He was being discharged home the same day yesterday. When he was ambulating with stools/to walker in his house, it tipped over to the cushion and he lost balance and he could not feel his leg so he fell. He denies any passing out. He denies any chest pain palpitations or shortness of breath. His neighbor helped him to get up and called the EMS to send the patient to our ED for evaluations. Imaging showing left distal femur spiral fractures. Orthopedic surgeon Dr. Suarez notified, plan to take the patient to the OR this afternoon at 2 PM for surgical fixations. Patient was complaining about 10 out of 10 sharp pain yesterday right after the incident, but right now he is complaining of no pain whatsoever. 12/05: s/p ORIF left femoral fracture by orthopedic surgeon Dr. Suarez on 12/04. Tolerated the procedure well. He is currently complaining of pinching sensation of his left knee at the moment, mild. H&H 6.7 and 21.4 this morning. He denies any shortness of breath or palpitations or chest pain. Will transfuse 2 unit PRBC right now and will recheck H&H this evening after finishing the blood transfusions. Postpone physical therapy and Occupational Therapy. Continue pain management as needed for left thigh/knee postsurgical pain. 12/06 No overnight event or new complaints. Hemoglobin mildly better after blood transfusion yesterday.. However patient is on oxygen and says he does not use oxygen during the day. Does use CPAP at night. 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 I suspect patient's been borderline hypoxic for some time because of the fibrosis and COPD changes. Patient denies dyspnea. 12/07 Patient feeling better today. No overnight event or new complaints. On his home CPAP last night. On room air this morning. Blood pressure systolic around 100. Hemoglobin stable. 12/08 Patient seems to be doing well today. Patient is on room air this morning. Vital signs stable. She is still quite debilitated and will need rehab which we are working on. Review of Systems: denies headache/fever/chills/nausea/vomiting/chest or abdominal pain/cough/dyspnea/diarrhea. Otherwise see above. Constitutional Vitals: Vital Signs Temp Pulse Resp BP Pulse Ox O2 Del Method O2 Flow Rate 97.8 F 58 L 20 103/62 96 3 12/08/21 08:00 12/08/21 08:00 12/08/21 08:00 12/08/21 08:00 12/08/21 08:00 12/08/21 08:00 12/08/21 08:00 Period Temp Pulse Resp BP Sys/Rodriguez Pulse Ox O2 Del Method O2 Flow Rate Last 24 Hr 97.3 F-101.1 F 58-91 16-20 95-115/57-64 90-98 Nasal Cannula- Room Air 2-3 Intake and Output 12/07/21 12/08/21 12/08/21 21:59 05:59 13:59 Output Total 551 650 600 Balance -551 -650 -600 Weight 90.804 kg Intake & Output: Intake & Output 12/07/21 12/08/21 12/08/21 21:59 05:59 13:59 Output Total 551 650 600 Balance -551 -650 -600 Weight 90.804 kg Output: Void Amount 550 650 600 # of times incontinent of urine 1 Other: Urine Appearance Clear Clear Urine Color Yellow Light Meaghan Dark Yellow Urine Odor Normal Normal Strong Exam: General: Alert, Awake, No acute Distress Eyes/N/T: EOMI, Head/Neck: neck supple, CV: reg with occ irregularity, 2/6SM Pulm: Clear b/l, no wheezing/rhonchi/rales Abd: soft, nontender, +BS x4 Ext: no clubbing/cyanosis/edema. LLE surgical dressing and cast Neuro: Alert, no focal deficits, moves all extremities, Skin: warm/dry OBJ DATA Labs CBC & Chem 7: 12/07/21 09:09 12/07/21 09:09 Labs: Abnormal Lab Results 12/07/21 12/07/21 12/06/21 09:09 09:09 06:06 RBC 2.65 L 2.42 L Hgb 8.1 L 7.6 L Hct 25.9 L 23.4 L RDW 15.8 H 16.6 H Plt Count 122 L 105 L Immature Gran % (Auto) 0.7 H 0.7 H Lymph % (Auto) 8.7 L 12.7 L Eos % (Auto) 9.3 H 10.2 H Lymph # (Auto) 0.79 L 1.17 L Eos # (Auto) 0.84 H 0.94 H Immature Gran # 0.06 H 0.06 H Glucose 165 H 12/05/21 17:57 RBC Hgb 8.2 L Hct 25.4 L RDW Plt Count Immature Gran % (Auto) Lymph % (Auto) Eos % (Auto) Lymph # (Auto) Eos # (Auto) Immature Gran # Glucose Meds: Medications Acetaminophen (Acetaminophen 325 Mg Tablet) 650 mg PO Q6HP PRN; Protocol PRN Reason: Per Pain Protocol/Fever > 101 Albuterol/Ipratropium (Ipratropium/Albuterol 3 Ml Ampul.Neb) 3 ml NEB Q4HRT PRN PRN Reason: Wheezing Amoxicillin/Clavulanate Potassium (Amoxicillin/Potassium Clav 875 Mg Tablet) 875 mg PO BID [facility]; Protocol Last Admin: 12/08/21 09:03 Dose: 875 mg Ascorbic Acid (Ascorbic Acid 500 Mg Tablet) 1,000 mg PO DAILY [facility] Last Admin: 12/08/21 09:03 Dose: 1,000 mg Docusate Sodium (Docusate Sodium 100 Mg Capsule) 100 mg PO BID [facility] Last Admin: 12/08/21 09:04 Dose: 100 mg Ferrous Sulfate (Ferrous Sulfate 325 Mg Tablet) 325 mg PO QDAY [facility] Last Admin: 12/08/21 09:04 Dose: 325 mg Finasteride (Finasteride 5 Mg Tablet) 5 mg PO QDAY [facility] Last Admin: 12/08/21 09:04 Dose: 5 mg Gabapentin (Gabapentin 300 Mg Capsule) 300 mg PO TID [facility] Last Admin: 12/08/21 09:04 Dose: 300 mg Heparin Sodium (Porcine) (Heparin 5,000 Unit/Ml Vial) 5,000 unit SQ Q12 [facility] Last Admin: 12/08/21 09:04 Dose: 5,000 unit Hydromorphone HCl (Hydromorphone 0.5 Mg/0.5 Ml Syringe) 0.5 mg IV Q2HP PRN; Protocol PRN Reason: Per Pain Protocol Last Admin: 12/05/21 11:33 Dose: 0.5 mg Ibuprofen (Ibuprofen 200 Mg Tablet) 200 mg PO Q6HP PRN PRN Reason: Pain Methocarbamol (Methocarbamol 1,000 Mg/10 Ml Vial) 750 mg IV Q6HP PRN PRN Reason: Muscle Spasm Methocarbamol (Methocarbamol 750 Mg Tablet) 750 mg PO Q6HP PRN PRN Reason: Muscle Spasm Last Admin: 12/06/21 16:00 Dose: 750 mg Naloxone HCl (Naloxone Hcl 0.4 Mg/Ml Vial) 0.1 mg IV Q2MIN PRN PRN Reason: Opiate Reversal Ondansetron HCl (Ondansetron 4 Mg/2 Ml Vial) 4 mg IV Q4HP PRN; Protocol PRN Reason: Nausea And Vomiting Ondansetron HCl (Ondansetron 4 Mg/2 Ml Vial) 4 mg IV Q6HP PRN PRN Reason: Nausea And Vomiting Oxycodone HCl (Oxycodone Hcl 5 Mg Tablet) 5 - 10 mg PO Q4-6HP PRN; Protocol PRN Reason: Per Pain Protocol Last Admin: 12/07/21 18:02 Dose: 5 mg Senna (Sennosides 1 Tablet) 2 tab PO HS [facility] Last Admin: 12/07/21 20:07 Dose: 2 tab Sodium Chloride (0.9 % Sodium Chloride 10 Ml Syringe) 10 ml IV Q8 [facility] Last Admin: 12/08/21 05:32 Dose: 10 ml Tamsulosin HCl (Tamsulosin 0.4 Mg Capsule) 0.4 mg PO QDAY [facility] Last Admin: 12/08/21 09:03 Dose: 0.4 mg Trazodone HCl (Trazodone Hcl 50 Mg Tablet) 25 mg PO HSP PRN PRN Reason: Insomnia Zinc Sulfate (Zinc Sulfate 50 Mg Capsule) 50 mg PO DAILY [facility] Last Admin: 12/08/21 09:04 Dose: 50 mg A/P Narrative A/P Narrative: A: *Left distal femur fracture, closed, spiral: s/p ORIF (12/04) *Left lower medial leg post-surgical breakdown: s/p skin graft (12/03) *Anemia, macrocytic, acute on chronic: -s/p 2prbc(12/05), stable *?acute on likely chronic hypoxic respiratory failure: 2/2 pulmonary fibrosis and COPD -now on room air *Pulmonary fibrosis/COPD: *ABIGAIL: uses cpap at night P: -Dr. Suarez following -Dr. Morel following -Supplemental O2 and wean off if able -RT to eval for home oxygen prior to d/c -cpap -pt/ot -ppx: heparin Code status: Vulcanizer Spent With Patient Time: Total time spent is greater than 50% in coordination of care (as documented) at patient's floor/unit and/or counseling patient: QUALITY Stroke Symptom Onset Unknown: No VTE Deep Vein Thrombosis/Pulmonary Embolism Present on Admission: No
--- NOTE | 2021-12-08 11:05 | General Surgery Progress Note ---
SUBJECTIVE Subjective Patient information: Note initiated : 12/08/21 at 11:04 am Service Date, if different from initiated Date: [] Patient: Brant Ribeiro 89 y/o M admitted on 12/04/21 for Left Knee pain. Chief Complaint: [] Additional PMFSH (Level 3 Only): 12/08/2021 Patient seen with nursing staff. Making slow and steady progress. LEFT thigh dressing was redone overnite. Doing ankle, foot / toe movements in bed. Constitutional Vitals: Vital Signs Temp Pulse Resp BP Pulse Ox O2 Del Method O2 Flow Rate 97.8 F 58 L 20 103/62 96 3 12/08/21 08:00 12/08/21 08:00 12/08/21 08:00 12/08/21 08:00 12/08/21 08:00 12/08/21 08:00 12/08/21 08:00 Period Temp Pulse Resp BP Sys/Rodriguez Pulse Ox O2 Del Method O2 Flow Rate Last 24 Hr 97.3 F-101.1 F 58-91 16-20 95-115/57-64 90-98 Nasal Cannula- Room Air 2-3 Intake and Output 12/07/21 12/08/21 12/08/21 21:59 05:59 13:59 Output Total 551 650 600 Balance -551 -650 -600 Weight 200 lb 3 oz Intake & Output: Intake & Output 12/07/21 12/08/21 12/08/21 21:59 05:59 13:59 Output Total 551 650 600 Balance -551 -650 -600 Weight 200 lb 3 oz Output: Void Amount 550 650 600 # of times incontinent of urine 1 Other: Urine Appearance Clear Clear Urine Color Yellow Light Meag[place] Dark Yellow Urine Odor Normal Normal Strong Exam: AVSS. No changes SHELBY. Needs physical therapy evaluation. TEACH patient about quad exercises, For primary change of Wound dressings 12/09. Patient needs in patient rehab. [facility] in [place] or [place] in [place]. A/P Narrative A/P Narrative: Assessment: Slow steady progress. Reviewed with . Plan of Treatment: Plan: for d/c planning ??? 12/09/2021. Dressing change tomorrow 12/09 before d/c. Time Spent With Patient Time: Total time spent is greater than 50% in coordination of care (as documented) at patient's floor/unit and/or counseling patient:
[2021-12-08] MEDS: oxyCODONE HCL 5 MG TABLET PO PRN (20:15)
[2021-12-08] MEDS: SENNOSIDES 1 TABLET PO SCH (20:15)
[2021-12-09] MEDS: 0.9 % SODIUM CHLORIDE 10 ML SYRINGE IV SCH ×2 (05:20→14:15)
[2021-12-09] MEDS: GABAPENTIN 300 MG CAPSULE PO SCH ×2 (08:50→14:15)
[2021-12-09] MEDS: ZINC SULFATE 50 MG CAPSULE PO SCH (08:50)
[2021-12-09] MEDS: AMOXICILLIN/POTASSIUM CLAV 875 MG TABLET PO SCH (08:50)
[2021-12-09] MEDS: HEPARIN 5,000 UNIT/ML VIAL SQ SCH (08:50)
[2021-12-09] MEDS: FINASTERIDE 5 MG TABLET PO SCH (08:50)
[2021-12-09] MEDS: TAMSULOSIN 0.4 MG CAPSULE PO SCH (08:50)
[2021-12-09] MEDS: ASCORBIC ACID 500 MG TABLET PO SCH (08:50)
[2021-12-09] MEDS: DOCUSATE SODIUM 100 MG CAPSULE PO SCH (08:51)
[2021-12-09] MEDS: FERROUS SULFATE 325 MG TABLET PO SCH (08:51)
--- NOTE | 2021-12-09 13:43 | General Surgery Progress Note ---
SUBJECTIVE Subjective Patient information: Note initiated : 12/09/21 at 1:35 pm Service Date, if different from initiated Date: [] Patient: Brant Ribeiro 89 y/o M admitted on 12/04/21 for Left Knee pain. Chief Complaint: [] Additional PMFSH (Level 3 Only): 12/09/2021 Patient seen with Suleiman Tapia. Wound Care Nurse. Primary dressings form LEFT thigh and lower medial leg changed. Constitutional Vitals: Vital Signs Temp Pulse Resp BP Pulse Ox O2 Del Method O2 Flow Rate 98.5 F 61 20 107/60 93 2 12/09/21 08:00 12/09/21 08:00 12/09/21 08:00 12/09/21 08:00 12/09/21 10:00 12/09/21 10:00 12/09/21 08:00 Period Temp Pulse Resp BP Sys/Rodriguez Pulse Ox O2 Del Method O2 Flow Rate Last 24 Hr 97.4 F-98.5 F 61-69 - 97-108/55-67 92-96 CPAP-Room Air 2 Intake and Output 12/08/21 12/09/21 12/09/21 21:59 05:59 13:59 Intake Total 480 400 Output Total 1000 325 300 Balance -1000 155 100 Weight 205 lb 6 oz Intake & Output: Intake & Output 12/08/21 12/09/21 12/09/21 21:59 05:59 13:59 Intake Total 480 400 Output Total 1000 325 300 Balance -1000 155 100 Weight 205 lb 6 oz Intake: Oral 480 400 Output: Void Amount 1000 325 300 Other: Meal Dinner Breakfast Percent of Meal Consumed 100% 100% Feeding Ability Independent Assist with Tray Set Up Urine Appearance Clear Clear Urine Color Dark Yellow Yellow Light Meaghan Urine Odor Normal Strong Stool Size Copious Stool Color Brown Stool Consistency Formed # Voids 1 # Bowel Movements 1 Exam: 12/09/2021 AVSS. No changes SHELBY. Has NOT gotten OOB yet. Lab results reviewed. HCT is stable mid 20's. WBC / Cr is WNL. Donor site wound of LEFT anterior thigh is CDI Skin graft site LEFT lower medial leg is dry. Patchy ecchymotic areas 30% wound bed. NO drainage, NO odor and NO purulence. NO warmth, NO crepitus. EDEMA improved. Wound c/s NO growth. A/P Narrative A/P Narrative: Assessment: Satisfactory progress from wound care point of view. Orthopedic surgery site Lateral thigh is CDI. Plan of Treatment: Plan: OK for D/c from wound care point of view to Rehab. Wound care orders per wound care nurse. May be d/c on PO antibiotics. To check with Orthopedics re WB status. If d/c f/u at the wound care clinic in 1 week. Time Spent With Patient Time: Total time spent is greater than 50% in coordination of care (as documented) at patient's floor/unit and/or counseling patient:
== END 2021-12-09 14:40 | DRG 480 ==
LOC: ED 23:41 → MEDSUR 12-04 02:30
PROVIDERS: ADMIT Internal Medicine; ATTEND Internal Medicine